=== PATIENT | female | born 2000 | race Caucasian/White ===

== ENCOUNTER 2025-01-19 10:51 | Outpatient (AMB) | payer MEDICAID, SELFPAY ==
--- NOTE | 2025-01-19 11:03 | A.OFFVIS_ITS ---
Vital Signs 01/19/25 11:05 Height 5 ft 3 in Weight 267 lb 3.204 oz BMI 47.3 BP 110/70 Pulse 72 Pulse Source Pulse Oximeter Pulse Oximetry (%) 98 Oxygen Delivery Method Room Air Intake Visit Reasons: Skin lesion? sarcoidosis Intake Note: pt presents today for possible skin lesions and srcoidosis. Allergies No Known Allergies Allergy (Verified 01/19/25 11:08) HPI HPI Skin lesion? sarcoidosis: Details: She had lesions on legs 01/07 that lasted a few days. She used a topical steroid prescribed by ER provider from her visit in 08/2024. On 08/21/2024 she developed new onset erythmatous lesions on leg. A photo shows drainage/blisters from one of the lesion with pain. +Pruritis. She also developed vaginal lesions. She had RADIOLOGY ASSISTANT exam with negative swabs for infection. She was prescribed topical anesthesia to help relief vaginal lesions. These lesions have resolved with topical steroid. She has not had dermatology eval or skin biopsy. Denies uveitis or ocular eye condition. Denies pain in eyes or redness. She has noticed that she needs in hence prescription. She had a tongue ulcer, self resolved. Fingers have turn purple in hot shower. Color in fingers/hand is more purple in hot shower but can turn purple with cold weather. Denies fevers, dyspnea, pleurisy, urinary symptoms. She has had chronic pain in hips, knees and backs. Shoulder pain since loosing weight from Bariatric surgery. No joint swelling. She was referred to PT for lower extremity strengthening last September but has not started it. Her highest weight was 577lb 2018. Prior to bariatric surgery she was 410lb. Pmx: asthma, depression, anxiety, OCD, ADHD, bipolar disorder and personality disorder. Psx: umbilical hernia repair 12/2023. Bariatric surgery 03/17/2024. Appendectomy 2021. Tonsilectomy and adenoidectomy age 22 years old. Vanessa occational. Rarely alcohol. 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 Mother has cutaneous sarcodosis. [facility] Medical History (Updated 01/19/25 @ 12:32 by Koffi Felipe MD) Abscess, appendix Surgical History (Updated 01/19/25 @ 11:14 by Katharine Benitez DISTILLING DEPARTMENT SUPERVISOR) S/P biliopancreatic diversion with duodenal switch H/O hernia repair Family History (Updated 01/19/25 @ 11:13 by Katharine Benitez CMA) Mother Sarcoidosis Social History (Updated 01/19/25 @ 11:16 by Katharine Benitez CMA) Household Members: None Alcohol intake: current Alcohol intake frequency: other Tobacco use type: Cigarette Review of Systems Const All systems reviewed & are unremarkable except as noted in HPI and below Physical Exam Vital Signs: Last Vital Signs Pulse 72 01/19/25 11:05 BP 110/70 01/19/25 11:05 Pulse Ox 98 01/19/25 11:05 Oxygen Delivery Method Room Air 01/19/25 11:05 BMI result Body Mass Index 47.3 Const Other: General: Comfortable CVS: RRR Respiratory: clear to auscultation bilaterally. Good respiratory effort Skin: Hyperpigmented circular skin lesions on legs, no discoloration of fingertips, no digital ulcers. MSK: She has tenderness of left MTPs. No synovitis of any joints. Normal range of motion of upper extremity. Mild Valgus deformity bilateral knees. She has knee flexion of 100 degrees bilateral knees. Tenderness to palpate bilateral groin region. No trochanteric bursa tenderness was found. Normal range of motion of hip flexors. Assessment & Plan Assessment & Plan (1) Rash: Comment: Patient has had lesions in lower extremities and vaginal area with 1 of the photos revealing a lesion with drainage/blistering. Patient is concerned for cutaneous sarcoidosis due to her mother having history of cutaneous sarcoidosis managed previously by a vineyard tender. She has not had any skin biopsy of her lesion. Differential diagnosis also includes bullous pemphigus due to blistering appearance of 1 of the skin lesions but requires histopathological analysis to confirm diagnosis including confirming cutaneous sarcoidosis. At this time she does not have any other manifestations to consider inflammatory arthritis associated with sarcoidosis or systemic sarcoidosis. Code(s): R21 - Rash and other nonspecific skin eruption Category: Medical Plan: Dermatology evaluation for her skin lesions. I recommend contacting PCP for referral (2) Bilateral knee pain: Code(s): M25.561 - Pain in right knee; M25.562 - Pain in left knee Category: Medical Qualifiers: Chronicity: chronic Qualified Code(s): M25.561 - Pain in right knee; M25.562 - Pain in left knee; G89.29 - Other chronic pain Plan: X-rays ordered Encouraged physical therapy for lower extremity strengthening. PT ordered given to patient to have done locally. (3) Hip pain, bilateral: Code(s): M25.551 - Pain in right hip; M25.552 - Pain in left hip Category: Medical Plan: X-rays of bilateral hips ordered PT ordered for lower extremity strengthening. PT ordered given to patient to have done locally. Return to clinic in 4 months (4) Morbid obesity: Comment: Status post bariatric surgery Code(s): E66.01 - Morbid (severe) obesity due to excess calories Category: Medical Plan: We discussed importance of maintenance of weight loss (5) Bilateral shoulder pain: Comment: With normal range of motion is concerning for mild rotator cuff tendinopathy. We discussed conservative management. Code(s): M25.511 - Pain in right shoulder; M25.512 - Pain in left shoulder Category: Medical Plan: X-ray bilateral shoulders ordered PT order for upper extremity strengthening. PT order given to patient to have done locally Return to clinic in 4 months Orders: Orders XR shoulder RT min 2V Today M25.511 - Pain in right shoulder, M25.512 - Pain in left shoulder PT Evaluation and Treatment Today M25.511 - Pain in right shoulder, M25.512 - Pain in left shoulder, M25.551 - Pain in right hip, M25.552 - Pain in left hip, M25.561 - Pain in right knee, M25.562 - Pain in left knee XR hips ALYSSA min 3V Today M25.551 - Pain in right hip, M25.552 - Pain in left hip XR knee RT 2V Today M17.0 - Bilateral primary osteoarthritis of knee XR knee LT 2V Today M25.561 - Pain in right knee, M25.562 - Pain in left knee XR shoulder LT min 2V Today M25.511 - Pain in right shoulder, M25.512 - Pain in left shoulder Coding Level of Care Code New Pt Level 4 (36567) Diagnoses Rash R21 Chronic pain of both knees M25.561; M25.562; G89.29 Chronicity: chronic Hip pain, bilateral M25.551; M25.552 Morbid obesity E66.01 Bilateral shoulder pain M25.511; M25.512
[2025-01-19 11:05] VITALS: BP 110/70; PULSE 72; O2SAT 98; BMI 47.3
--- OUTSIDE RECORDS SUMMARY | 2025-01-19 13:02 | XMS_ITS | Encounter Summary ---
Author Organization [facility] Address [address] [place] [address] Care Team Providers Care Simulation Specialist Name Role Phone Barrington Peres NP Primary Care Provider [phone]- [phone] Encounter Details Date Type Department Care Team (Late st Contact Info) Description 12/22/2024 Telephone Bariatric Surgery - [place] [address] [facility] [address] [place] [address] Jose Sanford MD [address] [place] [address] Social History Tobacco Use Types Packs/Day Years Used Date Smoking Tobacco: Former Smokeless Tobacco: Current Alcohol Use Standard Drinks/Week Comments Never 0 (1 standard drink = 0.6 oz pur e alcohol) Comments No Sex and Gender Information Value Date Recorded Sex Assigned at Female 12/10/2024 1:03 PM EST Legal Sex X 09/16/2024 9:15 PM EST Gender Identity Other 12/10/2024 1:03 PM EST Sexual Orientation Choose not to disclose 2024 1:03 PM EST documented as of this encounter Progress Notes * Jose Sanford MD - 12/22/2024 5:19 PM EST Turned out that she had influenza A. * Tanvi Pearson MA - 12/22/2024 2:24 PM EST Pt would like a call from either Juvenal or Jossie. Wouldn't state what the reason is. documented in this encounter Plan of Treatment Upcoming Encounters Date Type Department Care Team (Late st Contact Info) Description 03/16/2025 2:30 PM EDT Telemedicine Bariatric Surgery [facility] [address] [phone] Komal Rivera, ALEX [address] [address] 04/26/2025 2:15 PM EDT Office Visit Bariatric Surgery [facility] [address] [phone] Esperanza Hicks PA [address] [address] documented as of this encounter Visit Diagnoses Not on filedocumented in this encounter Additional Health Concerns Infection Onset Date Last Indicated Resolved Time Influenza 12/17/2024 12/17/2024 01/10/2025 7:06 PM EDT documented as of this encounter Care Teams Simulation Specialist Relationship Specialty Start Date End Date Barrington Peres NP [address] [place] [address] PCP - General Family Medicine 11/24/24 documented as of this encounter
--- OUTSIDE RECORDS SUMMARY | 2025-01-19 13:02 | XMS_ITS | Encounter Summary ---
Author Organization [facility] Address [address] [place] [address] Care Team Providers Care Gravel Weigher Name Role Phone Barrington Peres NP Primary Care Provider [phone]- [phone] Reason for Visit * Reason Comments Post-op Visit Hernia repair 12/15 Encounter Details Date Type Department Care Team ([facility] st Contact Info) Description 12/29/2024 2:45 PM EST Office Visit Bariatric Surgery - [place] [address] [facility] [address] [place] [address] Esperanza Hicks PA [address] [facility] [address] [place] [address] S/P umbilical hernia repair, follow-up exam (Primary Dx) Social History Tobacco Use Types Packs/Day Years [...] PM EST documented as of this encounter Last Filed Vital Signs Vital Sign Reading Time Taken Comments Blood Pressure 107/72 12/29/2024 2:47 PM EST Pulse 92 12/29/2024 2:47 PM EST Temperature - - Respiratory Rate - - Oxygen Saturation - - Inhaled Oxygen Concentration - - Weight 127 kg (279 lb) 12/29/2024 2:47 PM EST Height 160 cm (5' 3 ) 12/29/2024 2:47 PM EST Body Mass Index 49.42 12/29/2024 2:47 PM EST documented in this encounter Progress Notes * ROSALINE Wade - 12/29/2024 2:45 PM EST 12/30/2024 HPI: Jackie Nicole presents for surgical follow up s/p scopic repair of umbilical hernia with Dr. Sanford at [facility] on 06/14/2024. Unfortunately developed shortness of breath and was seen in the ER on 12/17/2023 at which time they was diagnosed with influenza A Treated with Tamiflu At that time she was also having abdominal pain and CT of her abdomen and pelvis was acquired, results below States that they still has a residual cough but feels overall better than they did at the time of their presentation to the ER Still having abdominal pain mainly with movement Feels a lump in there bellybutton that is bothering them They are eating and drinking Denies fever, chills, chest pain, shortness of breath COMPARISON: None. TECHNIQUE: CT angiogram of the chest after IV contrast followed by CT of the abdomen and pelvis. Radiation and contrast dose summarized and documented in a retrievable image series. One or more of the following dose reduction techniques were used: Automated exposure control, adjustment of the mA and/or kV according to patient size, iterative reconstruction. Contrast: 100 mL IOPAMIDOL 370 MG IODINE/ML (76 %) INTRAVENOUS SOLUTION Route: intravenous OBSERVATIONS: CHEST CT ANGIOGRAM: * DIAGNOSTIC QUALITY: Adequate. * PULMONARY EMBOLISM: None. * LUNGS and PLEURA: Normal. * CENTRAL AIRWAYS: Patent. * HEART/PERICARDIUM: Normal heart size. No pericardial effusion. No right ventricular strain. * AORTA/VESSELS: Patent. No aortic aneurysm or dissection. * MEDIASTINUM and DILMA: No enlarged lymph node or mass. * CHEST WALL: No acute or suspicious lesion. * THORACIC SKELETON: No acute or suspicious lesion. ABDOMEN AND PELVIS CT: * LIVER: Normal. * BILIARY TREE: Normal. * GALLBLADDER: Normal. * PANCREAS: Normal. * SPLEEN: Two (2) circumscribed hypodensities posteriorly suggesting cysts measuring up to 12 mm. * ADRENAL GLANDS: Normal. * KIDNEYS/URETERS/BLADDER: Normal. * REPRODUCTIVE ORGANS: Normal. * BOWEL: Sleeve gastrectomy changes. * LYMPH NODES: Normal. * PERITONEUM/MESENTERY: Tiny volume pneumoperitoneum compatible with recent surgery. No ascites. Nointra-abdominal abscess. * RETROPERITONEUM: No hematoma. * BLOOD VESSELS: Normal. * ABDOMINOPELVIC WALL: Mildly lobulated periumbilical fluid collection with air measuring 4.4 x 3.1cm on axial image 86 of series 5, and contiguous adjacent fluid collection LEFT of midline slightlymore inferiorly measuring 4.4 x 2.6 cm, which may be seroma or abscesses. Small volume foci of gas in the ventral abdominal wall compatible with recent surgery. * SKELETON: No acute or suspicious lesion. IMPRESSION: 1. No pulmonary embolism or finding to suggest acute chest disease. 2. Recent postoperative changes in the ventral abdominal wall with mildly lobulated small periumbilical fluid collection, which may be seroma or abscess. 3. No intra-abdominal abscess or pathologic fluid collection. Tiny volume pneumoperitoneum compatible with recent surgery noted. -------- FINAL REPORT -------- Dictated By: Tucker Woodward Dictated Date: 12/17/2024 19:33 Assigned Physician: Tucker Woodward Reviewed and Electronically Signed By: Tucker Woodward Signed Date: 12/17/2024 19:48 Workstation ID: [id number] Transcribed By: Self Edit Transcribed Date: 12/17/2024 19:33 Body mass index is 49.42 kg/m??. Pathology: HERNIA SAC WITH FOCAL FOREIGN BODY GRANULOMA ROS: GENERAL: No malaise, significant weight loss or fever HEENT: No changes in hearing or vision, nose bleeds or other nasal problems NECK: No lumps, goiter, pain or significant neck swelling RESPIRATORY: No cough, wheezing or shortness of breath CARDIOVASCULAR: No chest pain, leg swelling or palpitations GI: No abdominal discomfort, blood in stools or black stools MUSCULOSKELETAL: No joint pain or swelling, back pain, or muscle pain. SKIN: No lesions, rash or itching The remainder of the review of systems is noncontributory PAST MEDICAL HISTORY: Patient Active Problem List Diagnosis Head injury, initial encounter Abrasion of face ADD (attention deficit disorder) Bipolar 1 disorder (CMS/HCC) Hernia, umbilical OCD (obsessive compulsive disorder) Class 3 severe obesity with body mass index (BMI) of 50.0 to 59.9 in adult (CMS/[facility]) PAST SURGICAL HISTORY: Past Surgical History: Procedure Laterality Date APPENDECTOMY BARIATRIC SURGERY SOCIAL HISTORY: Social History Tobacco Use Smoking status: Former Smokeless tobacco: Current Substance Use Topics Alcohol use: Never FAMILY HISTORY: No family history on file. No family status information on file. MEDICATIONS: There are no discontinued medications. ACTIVE MEDICATIONS: Medication list was reviewed/updated with the patient. No outpatient medications have been marked as taking for the 12/29/24 encounter (Office Visit) with ROSALINE Wade. ALLERGIES: Allergies Allergen Reactions Prunes Anaphylaxis Nsaids (Non-Steroidal Anti-Inflammatory Drug) [place] Unknown PE: Vitals: 12/29/24 1447 BP: 107/72 Pulse: 92 Weight: 127 kg (279 lb) Height: 1.6 m (63 ) APPEARANCE: Alert and in no acute distress EYES: Conjunctiva and sclera normal. HEART: RRR with normal S1 and S2, no murmurs LUNG: Nonlabored respirations ABDOMEN: The incisions are healing well. Mild ecchymosis in the right periumbilical region There are no signs of infection, significant erythema, active drainage, or dehiscence at the surgical site. Does appear to be small fluid collection just to the left inferior aspect of the umbilicus. No overlying skin changes. Mildly tender. Soft, non-distended NEURO: Awake, alert and oriented EXTREMITIES: Extremities warm and well perfused without clubbing, cyanosis, or edema. A/P: 1. S/P umbilical hernia repair, follow-up exam Likely with postop seroma No signs of complication The patient is doing very well following surgery with good healing of surgical site. Hamida is advised regarding care of the incision site and is instructed to call if any wound drainage, fever, or other concerns arise. The patient will follow up in 4 weeks and Hamida is to call if there are any problems prior to scheduled visit. ROSALINE Wade documented in this encounter Plan of Treatment Upcoming Encounters Date Type Department Care Team (Late st Contact Info) Description 03/16/2025 2:30 PM EDT Telemedicine Bariatric Surgery - [address] [phone] Komal Rivera, RD [address] [address] 04/26/2025 2:15 PM EDT Office Visit Bariatric Surgery - [place] [address] [phone] Esperanza Hicks PA [address] [address] documented as of this encounter Visit Diagnoses Diagnosis S/P umbilical hernia repair, follow-up exam- Primary documented in this encounter Additional Health Concerns Infection Onset Date Last Indicated Resolved Time Influenza 12/17/2024 12/17/2024 01/10/2025 7:06 PM EDT documented as of this encounter Care Teams Gravel Weigher Relationship Specialty Start Date End Date Barrington Peres NP [address] [place] [address] PCP - General Family Medicine 11/24/24 documented as of this encounter
--- OUTSIDE RECORDS SUMMARY | 2025-01-19 13:02 | XMS_ITS ---
Author Organization [facility] Address [address] [place] [id number] Care Team Providers Care Quality Rn Name Role Phone Barrington Peres Primary Care Provider Gilda Samaniego Unavailable [phone] REASON FOR VISIT BH: Strattera Encounters Encounter Location Date Provider Diagnosis [address] [phone] 12/30/2024 Gilda Samaniego Plan Of Treatment Next Appt Details Provider Name:Gilda Samaniego, 03/10/2025 11:30:00 AM, [address] [facility], [place], [place], [phone], Progress Notes * Jackie GROSS SDOB: 0 (24 yo F)Acc No.[id number]:12/30/2024 Progress Notes Patient:?Jackie GROSS Ariana Provider:?Gilda Samaniego PMHNP-BC :2000???Age:24 Y???Sex:Female D ate:12/30/2024 Address:[address] [place] [address] [address], [facility] Pcp:Barrington Peres Subjective: * Chief Complaints: * ???1. BH: Strattera. * Medical History:? Objective: * Vitals:? Assessment: Plan: * Treatment: * Images: Billing Information: * Visit Code:? * Procedure Codes:? Care Plan Details* * Electronic signature of KERRI Ruvalcaba on 01/19/2025 at 01:02 PM EDT Sign off status: Pending * Provider:?Gilda Samaniego PMHNP-BC Date:?0 12/30/2024 Generated for Everardo gillette/Pedro/Adama on:?01/19/2025 01:02 PM EDT
--- OUTSIDE RECORDS SUMMARY | 2025-01-19 13:02 | XMS_ITS | Clinical Summary ---
Author Organization [facility] Address [address] [place] [address] Phone Care Team Providers Care Staff Development Coordinator Name Role Phone Barrington Peres PARKS RECREATION DIRECTOR Primary Care Provider [phone] Allergies Active Allergy Reactions Criticality Noted Date Comments Nsaids (Non-Steroidal Anti-I nflammatory Drug) 12/17/2024 [place] Unknown 02/08/2022 Prunes Anaphylaxis High 07/24/2016 Medications ALBUTEROL INHL Inhale into the lungs. Active buPROPion XL (WELLBUTRIN XL) 150 mg 24 hr tabletIndication s:Morbid (severe) obesity due to excess calories (CMS/HCC) TAKE 1 TABLET BY MOUTH EVERY MORNING 30 tablet 3 4 Active Additional Information Patient taking differently: 300 mgoral Every morning, Reported on 12/15/2024 naltrexone (DEPADE) 50 mg tabletIndication s:Morbid (severe) obesity due to excess calories (CMS/HCC) TAKE 1 TABLET BY MOUTH ONCE DAILY 30 tablet 3 4 Active betamethasone dipropionate (DIPROSONE) 0.05 % ointment Apply topically 2 (two) times a day. 30 g 4 025 Active loratadine (CLARITIN) 10 mg tablet Take 1 tablet (10 mg total) by mouth 1 (one) time each day for 7 days. 7 tablet 4 Active pantoprazole (PROTONIX) 40 mg EC tablet TAKE 1 TABLET BY MOUTH ONCE DAILY 90 tablet 5 Active oxyCODONE (OXY-IR) 5 mg immediate release capsule Take 1 capsule (5 mg total) by mouth every 6 (six) hours if needed for severe pain for up to 12 doses. Max Daily Amount: 20 mg 12 capsule 5 Active scopolamine (TRANSDERM-SCOP) 1 mg over 3 days patch 3 day Apply 1 patch topically every 3rd (third) day for 9 days. 3 patch 5 025 Active acetaminophen (TYLENOL) 500 mg tablet Take 2 tablets (1,000 mg total) by mouth every 8 (eight) hours if needed for mild pain for up to 10 days. 30 tablet 5 025 benzonatate (TESSALON) 100 mg capsule Take 1 capsule (100 mg total) by mouth every 8 (eight) hours for 7 days. Do not crush or chew. 21 capsule 5 025 oseltamivir (TAMIFLU) 75 mg capsule Take 1 capsule (75 mg total) by mouth every 12 (twelve) hours for 5 days. 10 capsule 5 025 Active Problems Problem Noted Date Diagnosed Date Bariatric surgery status 01/17/2025 Dehydration 01/17/2025 Class 3 severe obesity with body mass index (BMI) of 50.0 to 59.9 in adult 09/01/2024 ADD (attention deficit disorder) 01/06/2023 Bipolar 1 disorder 01/06/2023 Hernia, umbilical 01/06/2023 OCD (obsessive compulsive disorder) 01/06/2023 Head injury, initial encounter 02/08/2022 Abrasion of face 02/08/2022 Encounters Date Type Department Care Team Description 01/17/2025 1:45 PM EDT Office Visit Bariatric Surgery [address] [phone] Esperanza Hicks PA Umbilical hernia without obstruction and without gangrene (Primary Dx); H/O umbilical hernia repair; Bariatric surgery status; Dehydration 12/29/2024 2:45 PM EST Office Visit Bariatric Surgery [address] [phone] Esperanza Hicks PA S/P umbilical hernia repair, follow-up exam (Primary Dx) 12/22/2024 Telephone Bariatric Surgery - [place] [address] [phone] Jose Sanford MD 12/17/2024 3:46 PM EST - 12/17/2024 8:43 PM EST Emergency [facility] Emergency [address] [place] [address] Shortness of breath (Primary Dx); Influenza A; Abdominal pain, unspecified abdominal location Discharge Disposition: Home or Self Care 12/17/2024 Telephone Bariatric Surgery - [place] [address] [phone] Jose Sanford MD Advice Only (Post Op ) 12/15/2024 12:30 PM EST - 12/15/2024 2:30 PM EST Surgery [facility] Main OR [address] [place] [address] Jose Sanford MD LAPAROSCOPIC REPAIR UMBILICAL HERNIA WITH MESH [[id number] (CPT??)] 12/15/2024 12:04 PM EST Anesthesia Event [facility] Main OR [address] [place] [address] José Manuel Carrero MD Elliott, Barbara J [facility] 12/15/2024 10:48 AM EST - 12/15/2024 4:02 PM EST Hospital Encounter [facility] Main OR [address] [place] [address] Jose Sanford MD Umbilical hernia with obstruction, without gangrene; Morbid (severe) obesity due to excess calories (CMS/[facility]) Discharge Disposition: Home or Self Care 12/10/2024 1:32 PM EST - 12/10/2024 11:59 PM EST Hospital Encounter [facility] Xray [address] [place] [address] Fred Cordon MD Discharge Disposition: Home or Self Care 12/02/2024 Telephone Bariatric Surgery - [place] [address] [phone] Esperanza Hicks PA Advice Only (Phone call) 12/01/2024 3:15 PM EST Office Visit Bariatric Surgery - [place] [address] [place] [address] Jose Sanford MD Umbilical hernia without obstruction and without gangrene (Primary Dx); Class 3 severe obesity due to excess calories with body mass index (BMI) of 45.0 to 49.9 in adult, unspecified whether serious comorbidity present ([facility]); Postoperative intestinal malabsorption 11/24/2024 11:11 AM EST - 11/24/2024 1:38 PM EST Emergency [facility] Emergency [address] [place] [address] Rick Dubon DO Nausea and vomiting, unspecified vomiting type (Primary Dx); Generalized abdominal pain; Hernia of abdominal wall Discharge Disposition: Home or Self Care 11/12/2024 Lab Requisition [facility] - Main Lab [address] [facility] [place] [address] Neptali Madera MD Acute vaginitis from Last 3 Months Surgical History Surgery Date Site/Laterality Comments APPENDECTOMY BARIATRIC SURGERY Medical History Medical History Date Comments Asthma Bipolar disorder ([facility]) Borderline personality disorder ([facility]) Anxiety Depression PTSD (post-traumatic stress disorder) Obesity (BMI 30.0-34.9) 01/06/2023 DX:Obesi ty (BMI 30.0-34.9) Social History Tobacco Use Types Packs/Day Years Used Date Smoking Tobacco: Former Smokeless Tobacco: Current Tobacco Cessation:Ready to Q uit: Not Asked; Counseling Given: Not Answered Alcohol Use Standard Drinks/Week Comments Never 0 (1 standard drink = 0.6 oz pur e alcohol) Comments No Sex and Gender Information Value Date Recorded Sex Assigned at Female 12/10/2024 1:03 PM EST Legal Sex X 09/16/2024 9:15 PM EST Gender Identity Other 12/10/2024 1:03 PM EST Sexual Orientation Choose not to disclose 2024 1:03 PM EST Obstetrics History Last Filed Vital Signs Vital Sign Reading Time Taken Comments Blood Pressure 118/78 01/17/2025 1:46 PM EDT Pulse 55 01/17/2025 1:46 PM EDT Temperature 37.4 ??C (99.4 ??F) 12/17/2024 3:43 PM ES T Respiratory Rate 18 12/17/2024 8:36 PM EST Oxygen Saturation 96% 12/17/2024 8:36 PM EST Inhaled Oxygen Concentration - - Weight 123 kg (270 lb 9.6 oz) 01/17/2025 1:46 PM EDT Height 160 cm (5' 3 ) 01/17/2025 1:46 PM EDT Body Mass Index 47.93 01/17/2025 1:46 PM EDT Plan of Treatment Upcoming Encounters Date Type Department Care Team (Late st Contact Info) Description 03/16/2025 2:30 PM EDT Telemedicine Bariatric Surgery [facility] [address] [phone] Komal Rivera, ALEX [address] [phone] 04/26/2025 2:15 PM EDT Office Visit Bariatric Surgery [facility] [address] [phone] Esperanza Hicks PA [address] [phone] Health Maintenance Due Date Last Done Comments Pneumococcal Vaccine: Pediatrics (0 to 5 Years) and At-Risk Patients (6 to 64 Years) (1 of 1 - PPSV23) 2006 09/28/2001, 07/03/2001, 03/17/2001 Meningococcal B Vacine (2 of 2 - Bexsero SCDM 2-dose series) 06/24/2019 12/25/2018 Depression Screening 12/12/2019 Social Influencers of Health Screening 12/12/2019 Cervical Cancer Screening: Pap Smear 2021 COVID-19 Vaccine ( season) 2024 08/05/2022, 04/24/2021, 04/03/2021 Influenza Vaccine (#1) 2024 3, 07/30/2016, 08/28/2015, Additional history exists Gonorrhea/Chlamydia Screening 11/12/2025 11/12/2024 Cholesterol Screening (Lipid Panel) 05/08/2028 05/08/2023 DTaP,Tdap,and Td Vaccines (9 - Td or Tdap) 02/16/2034 02/17/2024, 06/11/2016, 10/05/2011, Additional history exists HIB Vaccines Completed 01/20/2002, 01/02, 2000 IPV Vaccines Completed 07/24/2004, 01/02, 01/26/2001, Additional history exists MMR Vaccines Completed 06/19/2005, 01/20/2002 Varicella Vaccines Completed 05/21/2011, 10/19/2001 HPV Vaccines Completed 08/11/2013, 04/03, 02/09/2013 Meningococcal ACWY Vaccine Completed 03/01/2017, Hepatitis A Vaccines Completed 12/25/2018, 06/11/20 Hepatitis B Vaccines Completed 06/01/2024, 12/29/2023, 11/26/2023, Additional history exists HIV Screening Completed 11/12/2024 Hepatitis C Screening Completed 11/12/2024 RSV Immunization Patients Under 20 months Aged Out No longer eligible based on patient's age to complete this topic Medical Devices Implanted Type Area Business Continuity Director Device Identifier Shelf Expiration Date Model / Serial / Lot Mesh [place] 37cm Optiflex Absrb Filt System - Sna - [id number] Implanted:Qty: 2 on 12/15/2024 by Joes Sanford MD at [facility] Internal and External Fixation N/A: Umbilical CR BARD - DAVOL DIV 04/30/2026 [id number] / NA / [id number] Mesh Surg [address] [place] [employer] Lf - Sna - [id number] Implanted:Qty: 1 on 12/15/2024 by Jose Sanford MD at [facility] Surgical Mesh Sling Implants N/A: Umbilical CR BARD - DAVOL DIV 04/30/2026 [id number] / NA / [id number] Procedures Procedure Name Priority Date/Time Associated Diagnosis Comments CT ANGIO CHEST WO AND/OR W CONTRAST STAT 12/17/2024 7:30 PM EST Shortness of breath CT ABDOMEN PELVIS W CONTRAST STAT 12/17/2024 7:30 PM EST CBC WITH AUTO DIFFERENTIAL STAT 12/17/2024 4:49 PM EST HCG, SERUM, QUALITATIVE STAT 12/17/19 25 4:49 PM EST D-DIMER STAT 12/17/2024 4:49 PM EST TROPONIN I HIGH SENSITIVITY STAT 12/17/2024 4:49 PM EST COMPREHENSIVE METABOLIC PANEL STAT 12/17/2024 4:49 PM EST CBC AND DIFFERENTIAL STAT 12/17/2024 4:49 PM EST XR CHEST 2 VIEWS STAT 12/17/2024 4:39 PM EST POCT [id number] SCREENING, MOLECULAR Routine 12/17/2024 4:31 PM EST POCT INFLUENZA TYPE A AND B Routine 12/17/2024 4:30 PM EST ECG 12-LEAD STAT 12/17/2024 3:39 PM EST TISSUE EXAM Routine 12/15/2024 1:15 PM EST Umbilical hernia with obstruction, without gangrene TH AN ENDOTRACHEAL(NO CHARGE) Routine 12/15/2024 1:01 PM EST NC REPR ANT ABD HERNIA(S) ANY APPR INIT INCL IMPL < 3 CM REDUCIBLE 12/15/2024 12:04 PM EST Umbilical hernia with obstruction, without gangrene XR CHEST 2 VIEWS Routine 12/10/2024 1:44 PM EST Umbilical hernia without obstruction and without gangrene CBC WITH AUTO DIFFERENTIAL Routine 12/10/2024 1:10 PM EST Umbilical hernia without obstruction and without gangrene BASIC METABOLIC PANEL Routine 12/10/2024 1:10 PM EST Umbilical hernia without obstruction and without gangrene CBC AND DIFFERENTIAL Routine 12/10/2024 1:10 PM EST Umbilical hernia without obstruction and without gangrene MAGNESIUM Routine 12/10/2024 1:10 PM EST Umbilical hernia without obstruction and without gangrene PROTHROMBIN TIME WITH INR Routine 12/10/2024 1:10 PM EST Umbilical hernia without obstruction and without gangrene TYPE AND SCREEN Routine 12/10/2024 1:10 PM EST Umbilical hernia without obstruction and without gangrene HICKEY URINE CULTURE TUBE Routine 12/10/19 25 1:10 PM EST Umbilical hernia without obstruction and without gangrene URINALYSIS WITH REFLEX MICROSCOPIC AND CULTURE Routine 12/10/2024 1:10 PM EST Umbilical hernia without obstruction and without gangrene URINALYSIS WITH REFLEX MICROSCOPIC AND CULTURE Routine 12/10/2024 1:10 PM EST Umbilical hernia without obstruction and without gangrene CULTURE URINE Routine 12/10/2024 1:10 PM EST Umbilical hernia without obstruction and without gangrene ECG 12-LEAD Routine 12/10/2024 12:54 PM EST Umbilical hernia without obstruction and without gangrene CT ABDOMEN PELVIS W CONTRAST STAT 11/24/2024 12:06 PM EST POC , URINE DIAGNOSTIC STAT 11/24/2024 9:46 AM EST CBC WITH AUTO DIFFERENTIAL STAT 11/24/2024 9:44 AM EST LIPASE STAT 11/24/2024 9:44 AM EST COMPREHENSIVE METABOLIC PANEL STAT 11/24/2024 9:44 AM EST CBC AND DIFFERENTIAL STAT 11/24/2024 9:44 AM EST SST - GOLD Routine 11/12/2024 9:40 AM EST Acute vaginitis HEPATITIS C ANTIBODY Routine 11/12/2024 9:40 AM EST Acute vaginitis TREPONEMA PALLIDUM ANTIBODY WITH REFLEX TO RPR AND PARTICLE AGGLUTINATION Routine 11/12/2024 9:40 AM EST Acute vaginitis HIV 1, 2 ANTIBODY, P24 ANTIGEN WITH REFLEX TO DIFFERENTIATION Routine 11/12/2024 9:40 AM EST Acute vaginitis CHLAMYDIA TRACHOMATIS AND NEISSERIA GONORRHOEAE PCR Routine 11/12/2024 9:40 AM EST Acute vaginitis VAGINITIS PATHOGENS BY PCR Routine 11/12/2024 9:40 AM EST Acute vaginitis LIPID PANEL Routine 05/08/2023 from Last 3 Months or Most Recently Relevant to Health Maintenance Results * CT Abdomen Pelvis w Contrast (12/17/2024 7:30 PM EST) Only the most recent of2 resultswithin the time period is included. Anatomical Region Laterality Modality Body Computed Tomogra phy 12/17/2024 7:33 PM EST Impressions 12/17/2024 7:48 PM EST 1. ??No pulmonary embolism or finding to suggest acute chest disease. 2. ??Recent postoperative changes in the ventral abdominal wall with mildly lobulated small periumbilical fluid collection, which may be seroma or abscess. 3. ??No intra-abdominal abscess or pathologic fluid collection. Tiny volume pneumoperitoneum compatible with recent surgery noted. -------- FINAL REPORT -------- Dictated By: Tucker Woodward Dictated Date: 12/17/2024 19:33 Assigned Physician: Tucker Woodward Reviewed and Electronically Signed By: Tucker Woodward Signed Date: 12/17/2024 19:48 Workstation ID: [id number] Transcribed By: Self Edit Transcribed Date: 12/17/2024 19:33 Narrative 12/17/2024 7:48 PM EST COMPARISON: None. TECHNIQUE: ??CT angiogram of the chest after IV contrast followed by CT of the abdomen and pelvis. ??Radiation and contrast dose summarized and documented in a retrievable image series. One or more of the following dose reduction techniques were used: Automated exposure control, adjustment of the mA and/or kV according to patient size, iterative reconstruction. ?? Contrast: 100 mL IOPAMIDOL 370 MG IODINE/ML (76 %) INTRAVENOUS SOLUTION Route: intravenous OBSERVATIONS: CHEST CT ANGIOGRAM: * ??DIAGNOSTIC QUALITY: Adequate. * ??PULMONARY EMBOLISM: None. * ??LUNGS and PLEURA: Normal. * ??CENTRAL AIRWAYS: Patent. * ??HEART/PERICARDIUM: Normal heart size. ??No pericardial effusion. No right ventricular strain. * ??AORTA/VESSELS: Patent. No aortic aneurysm or dissection. * ??MEDIASTINUM and DILMA: No enlarged lymph node or mass. * ??CHEST WALL: No acute or suspicious lesion. * ??THORACIC SKELETON: No acute or suspicious lesion. ABDOMEN AND PELVIS CT: * ??LIVER: Normal. * ??BILIARY TREE: Normal. * ??GALLBLADDER: Normal. * ??PANCREAS: Normal. * ??SPLEEN: Two (2) circumscribed hypodensities posteriorly suggesting cysts measuring up to 12 mm. * ??ADRENAL GLANDS: Normal. * ??KIDNEYS/URETERS/BLADDER: Normal. * ??REPRODUCTIVE ORGANS: Normal. * ??BOWEL: Sleeve gastrectomy changes. * ??LYMPH NODES: Normal. * ??PERITONEUM/MESENTERY: Tiny volume pneumoperitoneum compatible with recent surgery. ??No ascites. No intra-abdominal abscess. * ??RETROPERITONEUM: No hematoma. * ??BLOOD VESSELS: Normal. * ??ABDOMINOPELVIC WALL: Mildly lobulated periumbilical fluid collection with air measuring 4.4 x 3.1 cm on axial image 86 of series 5, and contiguous adjacent fluid collection LEFT of midline slightly more inferiorly measuring 4.4 x 2.6 cm, which may be seroma or abscesses. Small volume foci of gas in the ventral abdominal wall compatible with recent surgery. * ??SKELETON: No acute or suspicious lesion. Procedure Note Tucker Woodward MD - 12/17/2024 COMPARISON: None. TECHNIQUE: CT angiogram of the chest after IV contrast followed by CT ofthe abdomen and pelvis. Radiation and contrast dose summarized anddocumented in a retrievable image series. One or more of the followingdose reduction techniques were used: Automated exposure control,adjustment of the mA and/or kV according to patient size, iterativereconstruction. Contrast: 100 mL IOPAMIDOL 370 MG IODINE/ML (76 %) INTRAVENOUS SOLUTIONRoute: intravenous OBSERVATIONS: CHEST CT ANGIOGRAM: * DIAGNOSTIC QUALITY: Adequate. * PULMONARY EMBOLISM: None. * LUNGS and PLEURA: Normal. * CENTRAL AIRWAYS: Patent. * HEART/PERICARDIUM: Normal heart size. No pericardial effusion. Noright ventricular strain. * AORTA/VESSELS: Patent. No aortic aneurysm or dissection. * MEDIASTINUM and DILMA: No enlarged lymph node or mass. * CHEST WALL: No acute or suspicious lesion. * THORACIC SKELETON: No acute or suspicious lesion. ABDOMEN AND PELVIS CT: * LIVER: Normal. * BILIARY TREE: Normal. * GALLBLADDER: Normal. * PANCREAS: Normal. * SPLEEN: Two (2) circumscribed hypodensities posteriorly suggestingcysts measuring up to 12 mm. * ADRENAL GLANDS: Normal. * KIDNEYS/URETERS/BLADDER: Normal. * REPRODUCTIVE ORGANS: Normal. * BOWEL: Sleeve gastrectomy changes. * LYMPH NODES: Normal. * PERITONEUM/MESENTERY: Tiny volume pneumoperitoneum compatible withrecent surgery. No ascites. No intra-abdominal abscess. * RETROPERITONEUM: No hematoma. * BLOOD VESSELS: Normal. * ABDOMINOPELVIC WALL: Mildly lobulated periumbilical fluid collectionwith air measuring 4.4 x 3.1 cm on axial image 86 of series 5, andcontiguous adjacent fluid collection LEFT of midline slightly moreinferiorly measuring 4.4 x 2.6 cm, which may be seroma or abscesses. Smallvolume foci of gas in the ventral abdominal wall compatible with recentsurgery. * SKELETON: No acute or suspicious lesion. IMPRESSION: 1. No pulmonary embolism or finding to suggest acute chest disease. 2. Recent postoperative changes in the ventral abdominal wall with mildlylobulated small periumbilical fluid collection, which may be seroma orabscess. 3. No intra-abdominal abscess or pathologic fluid collection. Tiny volumepneumoperitoneum compatible with recent surgery noted. -------- FINAL REPORT -------- Dictated By: Tucker Woodward Dictated Date: 12/17/2024 19:33 Assigned Physician: Tucker Woodward Reviewed and Electronically Signed By: Tucker Woodward Signed Date: 12/17/2024 19:48 Workstation ID: [id number] Transcribed By: Self Edit Transcribed Date: 12/17/2024 19:33 us Alisa WAGGONER IMG CT PROCEDURES Final Resu lt * CT Angio Chest wo and/or w Contrast (12/17/2024 7:30 PM EST) Anatomical Region Laterality Modality Body Computed Tomogra phy 12/17/2024 7:33 PM EST Impressions 12/17/2024 7:48 PM EST 1. ??No pulmonary embolism or finding to suggest acute chest disease. 2. ??Recent postoperative changes in the ventral abdominal wall with mildly lobulated small periumbilical fluid collection, which may be seroma or abscess. 3. ??No intra-abdominal abscess or pathologic fluid collection. Tiny volume pneumoperitoneum compatible with recent surgery noted. -------- FINAL REPORT -------- Dictated By: Tucker Woodward Dictated Date: 12/17/2024 19:33 Assigned Physician: Tucker Woodward Reviewed and Electronically Signed By: Tucker Woodward Signed Date: 12/17/2024 19:48 Workstation ID: [id number] Transcribed By: Self Edit Transcribed Date: 12/17/2024 19:33 Narrative 12/17/2024 7:48 PM EST COMPARISON: None. TECHNIQUE: ??CT angiogram of the chest after IV contrast followed by CT of the abdomen and pelvis. ??Radiation and contrast dose summarized and documented in a retrievable image series. One or more of the following dose reduction techniques were used: Automated exposure control, adjustment of the mA and/or kV according to patient size, iterative reconstruction. ?? Contrast: 100 mL IOPAMIDOL 370 MG IODINE/ML (76 %) INTRAVENOUS SOLUTION Route: intravenous OBSERVATIONS: CHEST CT ANGIOGRAM: * ??DIAGNOSTIC QUALITY: Adequate. * ??PULMONARY EMBOLISM: None. * ??LUNGS and PLEURA: Normal. * ??CENTRAL AIRWAYS: Patent. * ??HEART/PERICARDIUM: Normal heart size. ??No pericardial effusion. No right ventricular strain. * ??AORTA/VESSELS: Patent. No aortic aneurysm or dissection. * ??MEDIASTINUM and DILMA: No enlarged lymph node or mass. * ??CHEST WALL: No acute or suspicious lesion. * ??THORACIC SKELETON: No acute or suspicious lesion. ABDOMEN AND PELVIS CT: * ??LIVER: Normal. * ??BILIARY TREE: Normal. * ??GALLBLADDER: Normal. * ??PANCREAS: Normal. * ??SPLEEN: Two (2) circumscribed hypodensities posteriorly suggesting cysts measuring up to 12 mm. * ??ADRENAL GLANDS: Normal. * ??KIDNEYS/URETERS/BLADDER: Normal. * ??REPRODUCTIVE ORGANS: Normal. * ??BOWEL: Sleeve gastrectomy changes. * ??LYMPH NODES: Normal. * ??PERITONEUM/MESENTERY: Tiny volume pneumoperitoneum compatible with recent surgery. ??No ascites. No intra-abdominal abscess. * ??RETROPERITONEUM: No hematoma. * ??BLOOD VESSELS: Normal. * ??ABDOMINOPELVIC WALL: Mildly lobulated periumbilical fluid collection with air measuring 4.4 x 3.1 cm on axial image 86 of series 5, and contiguous adjacent fluid collection LEFT of midline slightly more inferiorly measuring 4.4 x 2.6 cm, which may be seroma or abscesses. Small volume foci of gas in the ventral abdominal wall compatible with recent surgery. * ??SKELETON: No acute or suspicious lesion. Procedure Note Tucker Woodward MD - 12/17/2024 COMPARISON: None. TECHNIQUE: CT angiogram of the chest after IV contrast followed by CT ofthe abdomen and pelvis. Radiation and contrast dose summarized anddocumented in a retrievable image series. One or more of the followingdose reduction techniques were used: Automated exposure control,adjustment of the mA and/or kV according to patient size, iterativereconstruction. Contrast: 100 mL IOPAMIDOL 370 MG IODINE/ML (76 %) INTRAVENOUS SOLUTIONRoute: intravenous OBSERVATIONS: CHEST CT ANGIOGRAM: * DIAGNOSTIC QUALITY: Adequate. * PULMONARY EMBOLISM: None. * LUNGS and PLEURA: Normal. * CENTRAL AIRWAYS: Patent. * HEART/PERICARDIUM: Normal heart size. No pericardial effusion. Noright ventricular strain. * AORTA/VESSELS: Patent. No aortic aneurysm or dissection. * MEDIASTINUM and DILMA: No enlarged lymph node or mass. * CHEST WALL: No acute or suspicious lesion. * THORACIC SKELETON: No acute or suspicious lesion. ABDOMEN AND PELVIS CT: * LIVER: Normal. * BILIARY TREE: Normal. * GALLBLADDER: Normal. * PANCREAS: Normal. * SPLEEN: Two (2) circumscribed hypodensities posteriorly suggestingcysts measuring up to 12 mm. * ADRENAL GLANDS: Normal. * KIDNEYS/URETERS/BLADDER: Normal. * REPRODUCTIVE ORGANS: Normal. * BOWEL: Sleeve gastrectomy changes. * LYMPH NODES: Normal. * PERITONEUM/MESENTERY: Tiny volume pneumoperitoneum compatible withrecent surgery. No ascites. No intra-abdominal abscess. * RETROPERITONEUM: No hematoma. * BLOOD VESSELS: Normal. * ABDOMINOPELVIC WALL: Mildly lobulated periumbilical fluid collectionwith air measuring 4.4 x 3.1 cm on axial image 86 of series 5, andcontiguous adjacent fluid collection LEFT of midline slightly moreinferiorly measuring 4.4 x 2.6 cm, which may be seroma or abscesses. Smallvolume foci of gas in the ventral abdominal wall compatible with recentsurgery. * SKELETON: No acute or suspicious lesion. IMPRESSION: 1. No pulmonary embolism or finding to suggest acute chest disease. 2. Recent postoperative changes in the ventral abdominal wall with mildlylobulated small periumbilical fluid collection, which may be seroma orabscess. 3. No intra-abdominal abscess or pathologic fluid collection. Tiny volumepneumoperitoneum compatible with recent surgery noted. -------- FINAL REPORT -------- Dictated By: Tucker Woodward Dictated Date: 12/17/2024 19:33 Assigned Physician: Tucker Woodward Reviewed and Electronically Signed By: Tucker Woodward Signed Date: 12/17/2024 19:48 Workstation ID: [id number] Transcribed By: Self Edit Transcribed Date: 12/17/2024 19:33 us Alisa WAGGONER IMG CT PROCEDURES Final Resu lt * Troponin I high sensitivity (12/17/2024 4:49 PM EST) [facility] High Sensitivity Troponin I <4 0 - 76 ng/L LAB CHEMISTRY METHOD 12/17/2024 5:25 PM EST [facility] Blood Venous blood specimen / Unknown Venipuncture / Unknown 12/17/2024 4:49 PM EST 12/17/2024 4:57 PM EST Narrative [facility] - 12/17/2024 5:25 PM EST Falsely decreased High Sensitivity Troponin I results may occur on samples from patients taking Biotin. us Alisa WAGGONER LAB BLOOD ORDERABLES Final R esult [facility] [address] [place] [address] * (ABNORMAL) CBC auto differential (12/17/2024 4:49 PM EST) Only the most recent of3 resultswithin the time period is included. [facility] WBC 5.7 4.0 - 10.2 K/mcL LAB HEMETOLOGY METHOD 12/17/2024 5:03 PM [facility] RBC 4.87 3.80 - 5.70 M/mcL LAB HEMETOLOGY METHOD 12/17/2024 5:03 PM [facility] Hemoglobin 13.7 11.3 - 17.1 g/dL LAB HEMETOLOGY METHOD 12/17/2024 5:03 PM [facility] Hematocrit 41.3 34.0 - 50.2 % LAB HEMETOLOGY METHOD 12/17/2024 5:03 PM [facility] MCV 84.8 81.0 - 97.0 FL LAB HEMETOLOGY METHOD 12/17/2024 5:03 PM [facility] MCH 28.1 25.3 - 36.6 pcg LAB HEMETOLOGY METHOD 12/17/2024 5:03 PM [facility] MCHC 33.2 29.2 - 35.3 g/dL LAB HEMETOLOGY METHOD 12/17/2024 5:03 PM [facility] RDW 13.7 11.0 - 14.5 % LAB HEMETOLOGY METHOD 12/17/2024 5:03 PM [facility] RDW-SD 42.7 36.8 - 48.3 FL LAB HEMETOLOGY METHOD 12/17/2024 5:03 PM [facility] Platelets 192 150 - 400 K/mcL LAB HEMETOLOGY METHOD 12/17/2024 5:03 PM [facility] MPV 11.8 8.9 - 13.3 FL LAB HEMETOLOGY METHOD 12/17/2024 5:03 PM [facility] Neutrophils Relative 81.5(H) 32.0 - 71.0 % LAB HEMETOLOGY METHOD 12/17/2024 5:03 PM [facility] Immature Granulocytes Relative 0.2 0.0 - 1.0 % LAB HEMETOLOGY METHOD 12/17/2024 5:03 PM [facility] Lymphocytes Relative 7.7(L) 19.5 - 54.0 % LAB HEMETOLOGY METHOD 12/17/2024 5:03 PM [facility] Monocytes Relative 10.4 4.0 - 14.0 % LAB HEMETOLOGY METHOD 12/17/2024 5:03 PM [facility] Eosinophils Relative 0.0 0.0 - 7.0 % LAB HEMETOLOGY METHOD 12/17/2024 5:03 PM [facility] Basophils Relative 0.2 0.0 - 2.0 % LAB HEMETOLOGY METHOD 12/17/2024 5:03 PM [facility] Preliminary Neutrophils Abs Automated Count 4.65 1.50 - 6.00 K/mcL LAB HEMETOLOGY METHOD 12/17/2024 5:03 PM [facility] Neutrophils Absolute 4.65 1.50 - 6.00 K/mcL LAB HEMETOLOGY METHOD 12/17/2024 5:03 PM [facility] Immature Granulocytes Absolute 0.01 0.00 - 0.10 K/mcL LAB HEMETOLOGY METHOD 12/17/2024 5:03 PM [facility] Lymphocytes Absolute 0.44(L) 1.10 - 4.00 K/mcL LAB HEMETOLOGY METHOD 12/17/2024 5:03 PM [facility] Monocytes Absolute 0.59 0.20 - 1.00 K/mcL LAB HEMETOLOGY METHOD 12/17/2024 5:03 PM [facility] Eosinophils Absolute 0.00 0.00 - 0.70 K/mcL LAB HEMETOLOGY METHOD 12/17/2024 5:03 PM [facility] Basophils Absolute 0.01 0.00 - 0.20 K/mcL LAB HEMETOLOGY METHOD 12/17/2024 5:03 PM [facility] NRBC 0.0 0.0 - 0.0 % LAB HEMETOLOGY METHOD 12/17/2024 5:03 PM [facility] NRBC Absolute 0.00 0.00 - 0.00 K/mcL LAB HEMETOLOGY METHOD 12/17/2024 5:03 PM [facility] Blood Venous blood specimen / Unknown Venipuncture / Unknown 12/17/2024 4:49 PM EST 12/17/2024 4:57 PM EST Alisa WAGGONER LAB BLOOD ORDERABLES Final R esult Performing Organization Address City/[facility]/ZIP Co de Phone Number [facility] [address] [place] [address] * (ABNORMAL) D-dimer, quantitative (12/17/2024 4:49 PM EST) D-Dimer, Quant (FEU) 1,042(H) <=500 ng/mL FEU LAB COAGULATION METHOD 12/17/2024 5:29 PM EST [facility] Blood Venous blood specimen / Unknown Venipuncture / Unknown 12/17/2024 4:49 PM EST 12/17/2024 4:57 PM EST Narrative [facility] - 12/17/2024 5:29 PM EST D-Dimer is an exclusion assay. The FDA approved cut-off for the exclusion of DVT and PE with this method is 500 ng/ml FEU. ??If DDIM results are greater than 500 ng/ml FEU, further studies are recommended. Alisa WAGGONER LAB BLOOD ORDERABLES Final R esult Performing Organization Address [facility] Co de Phone Number [facility] [address] [place] [address] * hCG, serum, qualitative (12/17/2024 4:49 PM EST) Pathologist [facility] hCG Qual Negative Negative 12/17/2024 5:23 PM EST [facility] Blood Venous blood specimen / Unknown Venipuncture / Unknown 12/17/2024 4:49 PM EST 12/17/2024 4:57 PM EST Alisa WAGGONER LAB BLOOD ORDERABLES Final R esult [facility] [address] [place] [address] * (ABNORMAL) Comprehensive metabolic panel (12/17/2024 4:49 PM EST) Only the most recent of2 resultswithin the time period is included. Sodium 138 136 - 145 mmol/L LAB CHEMISTRY METHOD 12/17/2024 5:21 PM [facility] Potassium 3.2(L) 3.5 - 5.1 mmol/L LAB CHEMISTRY METHOD 12/17/2024 5:21 PM [facility] Chloride 99 98 - 107 mmol/L LAB CHEMISTRY METHOD 12/17/2024 5:21 PM [facility] CO2 28 21 - 32 mmol/L LAB CHEMISTRY METHOD 12/17/2024 5:21 PM [facility] Anion Gap 11 3 - 11 LAB CHEMISTRY METHOD 12/17/2024 5:21 PM [facility] Glucose 91 70 - 99 mg/dL LAB CHEMISTRY METHOD 12/17/2024 5:21 PM [facility] BUN 8 7 - 18 mg/dL LAB CHEMISTRY METHOD 12/17/2024 5:21 PM [facility] Creatinine 0.71 0.55 - 1.30 mg/dL LAB CHEMISTRY METHOD 12/17/2024 5:21 PM [facility] eGFR 122 >=60 mL/min/1. 73m2 LAB CHEMISTRY METHOD 12/17/2024 5:21 PM [facility] Comment: For non-binary individuals or unknown sex, the equation for female sex is used to calculate the estimated glomerular filtration rate (eGFR). Calculation based on the??Chronic Kidney Disease Epidemiology Collaboration (CKD-EPI) equation refit??without adjustment for race. BUN/Creatinine Ratio 11.3(L) 12.0 - 20.0 LAB CHEMISTRY METHOD 12/17/2024 5:21 PM [facility] Calcium 8.3(L) 8.5 - 10.1 mg/dL LAB CHEMISTRY METHOD 12/17/2024 5:21 PM [facility] AST (SGOT) 35 15 - 37 unit/L LAB CHEMISTRY METHOD 12/17/2024 5:21 PM [facility] ALT (SGPT) 42 13 - 61 unit/L LAB CHEMISTRY METHOD 12/17/2024 5:21 PM [facility] Alkaline Phosphatase 104 42 - 128 unit/L LAB CHEMISTRY METHOD 12/17/2024 5:21 PM [facility] Total Protein 6.6 6.4 - 8.2 g/dL LAB CHEMISTRY METHOD 12/17/2024 5:21 PM [facility] Albumin 3.3(L) 3.4 - 5.0 g/dL LAB CHEMISTRY METHOD 12/17/2024 5:21 PM [facility] Total Bilirubin 0.7 0.2 - 1.2 mg/dL LAB CHEMISTRY METHOD 12/17/2024 5:21 PM [facility] Blood Venous blood specimen / Unknown Venipuncture / Unknown 12/17/2024 4:49 PM EST 12/17/2024 4:57 PM EST us Alisa WAGGONER LAB BLOOD ORDERABLES Final R esult [facility] [address] [place] [address] * XR Chest 2 Views (12/17/2024 4:39 PM EST) Only the most recent of2 resultswithin the time period is included. Anatomical Region Laterality Modality Body Radiographic Holly ging 12/17/2024 4:40 PM EST Impressions 12/17/2024 4:41 PM EST No acute chest abnormality. -------- FINAL REPORT -------- Dictated By: Tucker Woodward Dictated Date: 12/17/2024 16:40 Assigned Physician: Tucker Woodward Reviewed and Electronically Signed By: Tucker Woodward Signed Date: 12/17/2024 16:41 Workstation ID: [id number] Transcribed By: Self Edit Transcribed Date: 12/17/2024 16:40 Narrative 12/17/2024 4:41 PM EST Comparison: None. Observations: No pulmonary opacity or edema. No pleural effusion or pneumothorax. ??Midline trachea. ??Normal heart size and pulmonary vascularity. Mild thoracic dextrocurvature. Otherwise unremarkable visualized skeleton. Procedure Note Tucker Woodward MD - 12/17/2024 Comparison: None. Observations: No pulmonary opacity or edema. No pleural effusion or pneumothorax.Midline trachea. Normal heart size and pulmonary vascularity. Mildthoracic dextrocurvature. Otherwise unremarkable visualized skeleton. IMPRESSION: No acute chest abnormality. -------- FINAL REPORT -------- Dictated By: Tucker Woodward Dictated Date: 12/17/2024 16:40 Assigned Physician: Tucker Woodward Reviewed and Electronically Signed By: Tucker Woodward Signed Date: 12/17/2024 16:41 Workstation ID: [id number] Transcribed By: Self Edit Transcribed Date: 12/17/2024 16:40 Alisa WAGGONER IMG XR PROCEDURES Final Resu lt * POCT [id number] screening, molecular (12/17/2024 4:31 PM EST) [id number] Molecular POCT Negative Negative METHOD [id number] 12/17/2024 4:40 PM EST [facility] Swab Nasopharyngeal structure / Unknown 12/17/2024 4:31 PM EST 12/17/2024 4:41 PM EST Generic Provider Poct LAB POINT OF CARE TEST DOCKED DEVICE UNSOLICITED RESULTS Final Result Performing Organization Address City/[facility]/ZIP Co de Phone Number [facility] [address] [place] [address] * (ABNORMAL) POCT Influenza type A and B (12/17/2024 4:30 PM EST) Influenza A Screen POCT Positive(AA) Negative METHOD [id number] 12/17/2024 4:41 PM EST [facility] Influenza B Screen POCT Negative Negative METHOD [id number] 12/17/2024 4:41 PM EST [facility] Swab Nasopharyngeal structure / Unknown 12/17/2024 4:30 PM EST 12/17/2024 4:43 PM EST Generic Provider Poct LAB POINT OF CARE TEST DOCKED DEVICE UNSOLICITED RESULTS Final Result Performing Organization Address [facility] Co de Phone Number [facility] [address] [place] [address] * ECG 12 lead (12/17/2024 3:39 PM EST) Only the most recent of2 resultswithin the time period is included. Ventricular Rate ECG 89 BPM GEMUSE Atrial Rate 89 BPM GEMUSE P-R Interval 130 ms GEMUSE QRS Duration 84 ms GEMUSE Q-T Interval 332 ms GEMUSE QTc 403 ms GEMUSE P Wave [place] 23 degrees GEMUSE R [place] 15 degrees GEMUSE T [place] 8 degrees GEMUSE ECG Interpretation NORMAL SINUS RHYTHM NORMAL ECG NO PREVIOUS ECGS AVAILABLE Confirmed by Beverly Mayo ([id number]) on 12/20/2024 12:18:12 PM GEMUSE 12/17/2024 3:39 PM EST 12/20/2024 12:18 PM EST us Alisa WAGGONER ECG ORDERABLES Final Result GEMUSE * Tissue exam (12/15/2024 1:15 PM EST) Final Diagnosis Abdominal Wall, umbilical hernia sac-herniorraphy: -HERNIA SAC WITH FOCAL FOREIGN BODY GRANULOMA 12/16/2024 12:23 PM EST [facility] Gross Description A. Abdominal Wall, umbilical hernia sac: Labeled umbilical abd wall . Received in formalin is a 4.0 x 2.5 x 1.5 cm crane-pink to red saccular, fibromembranous portion of tissue with a small amount of attached adipose tissue. The specimen is sectioned and manufacturers service representative sections are submitted in one cassette, two pieces. TS 12/16/2024 12:23 PM EST [facility] Disclaimer Unless otherwise specified, all tissue is 10% NB formalin fixed and paraffin embedded. 12/16/2024 12:23 PM EST [facility] Tissue Abdominal wall / Unknown 12/15/2024 1:15 PM EST 12/15/2024 2:57 PM EST us Jose Sanford MD LAB PATHOLOGY ORDERABLES Fin al Result [facility] [address] [place] [address], * TH AN ENDOTRACHEAL(NO CHARGE) (12/15/2024 1:01 PM EST) Narrative Ellie Xiao SRNA - 12/15/2024 1:01 PM EST DAYDAY Carrasco ? 12/15/2024 ??1:02 PM General Information and Staff Patient location during procedure: OR Performed by: DAYDAY Carrasco Authorized by: Vane Pino MD ?? Intubation Airway not difficult Urgency: elective Final Airway Details Successful airway: ETT Cuffed: yes Successful intubation technique: video laryngoscopy Facilitating devices/methods: intubating stylet Endotracheal tube insertion site: oral Blade: Chelsie Blade size: #3 ETT size (mm): 8.0 Cormack-Lehane Classification: grade I - full view of glottis Placement verified by: chest auscultation, capnometry and palpation of cuff Measured from: teeth ETT to teeth (cm): 20 Number of attempts at approach: 1 Number of other approaches attempted: 0Final airway type: endotracheal airway Indications and Patient Condition Indications for airway management: anesthesia Spontaneous Ventilation: absent Sedation level: Yes Preoxygenated: yes Soft Tissue Damage: No Dentition Unchanged: Yes Patient position: sniffing MILS maintained throughout Mask difficulty assessment: 1 - vent by mask us Vane Pino MD ANESTHESIA ORDERABLES Final Resu lt * (ABNORMAL) Urinalysis with reflex microscopic and culture (12/10/2024 1:10 PM EST) Specific [place] Urine 1.028 1.003 - 1.030 LAB URINALYSIS - AUTOMATED METHOD 12/10/2024 2:[address] [facility] pH, Urine 5.0 5.0 - 8.0 pH LAB URINALYSIS - AUTOMATED METHOD 12/10/2024 2:[address] [facility] Leukocytes, Urine Trace(A) Negative LAB URINALYSIS - AUTOMATED METHOD 12/10/2024 2:[address] [facility] Nitrite, Urine Negative Negative LAB URINALYSIS - AUTOMATED METHOD 12/10/2024 2:[address] [facility] Protein, Urine Negative <=Trace mg/dL LAB URINALYSIS - AUTOMATED METHOD 12/10/2024 2:[address] [facility] Glucose, Urine Negative Negative mg/dL LAB URINALYSIS - AUTOMATED METHOD 12/10/2024 2:[address] [facility] Ketones, Urine Trace(A) Negative mg/dL LAB URINALYSIS - AUTOMATED METHOD 12/10/2024 2:[address] [facility] Urobilinogen, Urine 1.0 0.2 - 1.0 mg/dL LAB URINALYSIS - AUTOMATED METHOD 12/10/2024 2:[address] [facility] Bilirubin, Urine Small(A) Negative LAB URINALYSIS - AUTOMATED METHOD 12/10/2024 2:[address] [facility] Blood, Urine Trace(A) Negative LAB URINALYSIS - AUTOMATED METHOD 12/10/2024 2:[address] [facility] RBC, Urine 3.2 0 - 4 /HPF LAB URINALYSIS - AUTOMATED METHOD 12/10/2024 2:[address] [facility] WBC, Urine 4.9(H) 0 - 4 /HPF LAB URINALYSIS - AUTOMATED METHOD 12/10/2024 2:[address] [facility] Squamous Epithelial, Urine >100(H) 0 - 60 /LPF LAB URINALYSIS - AUTOMATED METHOD 12/10/2024 2:[address] [facility] Bacteria, Urine Few(A) Negative /HPF LAB URINALYSIS - AUTOMATED METHOD 12/10/2024 2:[address] [facility] Hyaline Casts, Urine 12.0(H) 0 - 3 /LPF LAB URINALYSIS - AUTOMATED METHOD 12/10/2024 2:[address] [facility] Urine Urine specimen obtained by clean catch procedure / Unknown Non-blood Collection / Unknown 12/10/2024 1:10 PM EST 12/10/2024 1:34 PM EST us Esperanza WAGGONER LAB URINE ORDERABLES Final R esult [facility] [address] [place] [address], * Hickey urine culture tube (12/10/2024 1:10 PM EST) Extra Tube Hold for add-ons. 12/10/2024 3:[address] [facility] Comment:Auto resulted. Urine Urine specimen obtained by clean catch procedure / Unknown Non-blood Collection / Unknown 12/10/2024 1:10 PM EST 12/10/2024 1:34 PM EST us Esperanza WAGGONER LAB URINE ORDERABLES Final R esult Performing Organization Address [facility]/ZIP Co de Phone Number [facility] [address] [place] [address], [place] [phone] * Prothrombin time with INR (12/10/2024 1:10 PM EST) Pathologist [facility] Protime 13.8 10.6 - 13.9 sec LAB COAGULATION METHOD 12/10/2024 2:00 PM EST [facility] INR 1.1 LAB COAGULATION METHOD 12/10/2024 2:00 PM EST [facility] Blood Venous blood specimen / Unknown Venipuncture / Unknown 12/10/2024 1:10 PM EST 12/10/2024 1:34 PM EST us Esperanza WAGGONER LAB BLOOD ORDERABLES Final R esult Performing Organization Address City/[facility]/ZIP Co de Phone Number [facility] [address] [place] [address], [place] [phone] * Type and screen (12/10/2024 1:10 PM EST) ABO Group A 12/10/2024 3:39 PM EST [facility] Rh Type Positive 12/10/2024 3:39 PM EST [facility] Antibody Screen Negative 12/10/2024 3:39 PM EST [facility] Blood Venous blood specimen / Unknown Venipuncture / Unknown 12/10/2024 1:10 PM EST 12/10/2024 1:34 PM EST us Esperanza WAGGONER LAB BLOOD BANK TEST ORDERABL ES Final Result Performing Organization Address [facility]/ZIP Co de Phone Number [facility] [address] [place] [address], * Culture urine (12/10/2024 1:10 PM EST) Culture, Urine >100,000 CFU/mL Mixed urogenital moe, no uropathogens present. Suggest repeat specimen if clinically indicated. 12/11/2024 10:39 AM EST [facility] Urine Urine specimen obtained by clean catch procedure / Unknown Non-blood Collection / Unknown 12/10/2024 1:10 PM EST 12/10/2024 2:23 PM EST Esperanza WAGGONER LAB MICROBIOLOGY - GENERAL O RDERABLES Final Result Performing Organization Address [facility] Co de Phone Number [facility] [address] [place] [address], * Magnesium (12/10/2024 1:10 PM EST) Pathologist [facility] Magnesium 2.3 1.9 - 2.6 mg/dL LAB CHEMISTRY METHOD 12/10/2024 2:06 PM EST [facility] Blood Venous blood specimen / Unknown Venipuncture / Unknown 12/10/2024 1:10 PM EST 12/10/2024 1:34 PM EST Esperanza WAGGONER LAB BLOOD ORDERABLES Final R esult Performing Organization Address [facility]/ZIP Co de Phone Number [facility] [address] [place] [address], [place] [phone] * BMP (12/10/2024 1:10 PM EST) Sodium 139 133 - 145 mmol/L LAB CHEMISTRY METHOD 12/10/2024 2:06 PM EST [facility] Potassium 3.9 3.5 - 5.5 mmol/L LAB CHEMISTRY METHOD 12/10/2024 2:[address] [facility] Chloride 106 96 - 110 mmol/L LAB CHEMISTRY METHOD 12/10/2024 2:[address] [facility] CO2 28 21 - 32 mmol/L LAB CHEMISTRY METHOD 12/10/2024 2:[address] [facility] Anion Gap 5 3 - 11 LAB CHEMISTRY METHOD 12/10/2024 2:[address] [facility] Glucose 85 70 - 100 mg/dL LAB CHEMISTRY METHOD 12/10/2024 2:[address] [facility] BUN 9 5 - 25 mg/dL LAB CHEMISTRY METHOD 12/10/2024 2:[address] [facility] Creatinine 0.60 0.50 - 1.30 mg/dL LAB CHEMISTRY METHOD 12/10/2024 2:[address] [facility] eGFR 129 >=60 mL/min/1. 73m2 LAB CHEMISTRY METHOD 12/10/2024 2:[address] [facility] Comment: For non-binary individuals or unknown sex, the equation for female sex is used to calculate the estimated glomerular filtration rate (eGFR). Calculation based on the??Chronic Kidney Disease Epidemiology Collaboration (CKD-EPI) equation refit??without adjustment for race. BUN/Creatinine Ratio 15.0 LAB CHEMISTRY METHOD 12/10/2024 2:[address] [facility] Calcium 9.0 8.5 - 10.5 mg/dL LAB CHEMISTRY METHOD 12/10/2024 2:[address] [facility] Blood Venous blood specimen / Unknown Venipuncture / Unknown 12/10/2024 1:10 PM EST 12/10/2024 1:34 PM EST us Esperanza WAGGONER LAB BLOOD ORDERABLES Final R esult [facility] [address] [place] [address], [place] [phone] * POC , urine manually resulted (11/24/2024 9:46 AM EST) Pathologist [facility] HCG, Ur POC Negative Negative POC hCG Int QC Pass? Yes Yes Urine Urine specimen obtained by clean catch procedure / Unknown 11/24/2024 9:46 AM EST Rick Dubon DO POINT OF CARE TEST ENTER/EDIT ORDERABLES Final Result * Lipase (11/24/2024 9:44 AM EST) Pathologist [facility] Lipase 27 13 - 75 unit/L LAB CHEMISTRY METHOD 11/24/2024 10:44 AM EST [facility] Blood Venous blood specimen / Unknown Venipuncture / Unknown 11/24/2024 9:44 AM EST 11/24/2024 10:14 AM EST Rick Dubon DO LAB BLOOD ORDERABLES Final Res ult Performing Organization Address City/[facility]/ZIP Co de Phone Number [facility] [address] [place] [address], [place] [phone] * Hepatitis C antibody (11/12/2024 9:40 AM EST) [facility] Hepatitis C Antibody Negative Negative LAB CHEMISTRY METHOD 11/12/2024 7:10 PM EST [facility] Blood Venous blood specimen / Unknown 11/12/2024 9:40 AM EST 11/12/2024 5:35 PM EST Neptali Madera MD LAB BLOOD ORDERABLES Final Re sult Performing Organization Address City/[facility]/ZIP Co de Phone Number [facility] [address] [place] [address], [place] [phone] * HIV 1,2 antibody, p24 antigen with reflex to differentiation (11/12/2024 9:40 AM EST) [facility] HIV Combo AB/AG Negative Negative LAB CHEMISTRY METHOD 11/12/2024 7:11 PM EST [facility] Blood Venous blood specimen / Unknown 11/12/2024 9:40 AM EST 11/12/2024 5:35 PM EST Narrative [facility] - 11/12/2024 7:11 PM EST This assay is a 4th generation assay allowing for earlier detection of HIV infection by detecting the presence of the HIV-1 p24 antigen as well as the traditional antibodies to HIV type 1 (including group O) and type 2. ??Use of a 4th generation assay is the current CDC recommendation for HIV screening. Neptali Madera MD LAB BLOOD ORDERABLES Final Re sult Performing Organization Address [facility]/ZIP Co de Phone Number [facility] [address] [place] [address], [place] [phone] * Treponema pallidum antibody with reflex to RPR and particle agglutination (11/12/2024 9:40 AM EST) [facility] T. Pallidum Antibodies Negative Negative LAB CHEMISTRY METHOD 11/12/2024 6:42 PM EST [facility] Blood Venous blood specimen / Unknown 11/12/2024 9:40 AM EST 11/12/2024 5:35 PM EST Neptali Madera MD LAB BLOOD ORDERABLES Final Re sult Performing Organization Address City/[facility]/ZIP Co de Phone Number [facility] [address] [place] [address], [place] [phone] * SST tube (11/12/2024 9:40 AM EST) [facility] Extra Tube Hold for add-ons. 11/12/2024 7:01 PM EST [facility] Comment:Auto resulted. Blood Venous blood specimen / Unknown 11/12/2024 9:40 AM EST 11/12/2024 5:36 PM EST Neptali Madera MD LAB BLOOD ORDERABLES Final Re sult Performing Organization Address [facility]/ZIP Co de Phone Number [facility] [address] [place] [address], [place] [phone] * (ABNORMAL) Vaginitis pathogens molecular study (11/12/2024 9:40 AM EST) Trichomonas vaginalis Negative Negative 11/13/2024 1:38 PM EST [facility] Gardnerella vaginalis Positive(A) Negative 11/13/2024 1:38 PM EST [facility] Rossana Species Negative Negative 1:38 PM EST [facility] Swab 11/12/2024 9:40 AM EST 11/12/2024 5:35 PM EST Neptali Madera MD LAB MICROBIOLOGY - GENERAL OR DERABLES Final Result Performing Organization Address [facility] Phone Number [facility] [address] [place] [address], [place] [phone] * Chlamydia trachomatis and Neisseria gonorrhoeae molecular study (11/12/2024 9:40 AM EST) Neisseria gonorrhoeae PCR Negative Negative LAB MOLECULAR DIAGNOSTICS METHOD 11/13/2024 9:59 AM EST [facility] Chlamydia trachomatis PCR Negative Negative LAB MOLECULAR DIAGNOSTICS METHOD 11/13/2024 9:59 AM EST [facility] Urine 11/12/2024 9:40 AM EST 11/12/2024 5:35 PM EST us Neptali Madera MD LAB MICROBIOLOGY - GENERAL OR DERABLES Final Result Performing Organization Address City/[facility]/ZIP Co de Phone Number [facility] [address] [place] [address], * (ABNORMAL) Lipid panel (05/08/2023) LDL/HDL Ratio 4 0 - 4 Triglycerides 114 0 - 150 mg/dL Cholesterol 192 0 - 200 mg/dL HDL 54 >=40 mg/dL LDL Cholesterol 116(A) 0 - 100 mg/dL Blood Venous blood specimen / Unknown us Historical Provider LAB BLOOD ORDERABLES Alisia l Result from Last 3 Months or Most Recently Relevant to Health Maintenance Insurance MEDICAID - [place] Care Teams Staff Development Coordinator Relationship Specialty Start Date End Date Barrington Peres NP [address] [place] [address] PCP - General Family Medicine 11/24/24
--- OUTSIDE RECORDS SUMMARY | 2025-01-19 13:02 | XMS_ITS | Clinical Summary ---
Author Organization [facility] Address [address] [place] [address] Care Team Providers Care Full Stack Net Developer Name Role Phone Barrington Peres [employer] Primary Care Provider [phone]- [phone] Allergies Active Allergy Reactions Criticality Noted Date Comments [employer] 04/30/2024 Medications Medication Sig Dispensed Refills Start Date End Date Status Acetaminophen Extra Strength 500 MG TABS Take 2 tablets by mouth every 8 (eight) hours. 0 03/09/2024 Active albuterol 108 (90 Base) MCG/ACT inhaler 2 puff(s) inhaled every 6 hours for 30 days 0 Active norethindrone (MICRONOR) 0.35 MG tablet Take 1 tablet (0.35 mg total) by mouth daily. 0 03/31/2024 Active ondansetron (ZOFRAN-ODT) [address] 1 TABLET UNDER THE TONGUE TO DISSOLVE EVERY 8 HOURS NEEDED FOR NAUSEA FOR UP TO 7 DAYS 0 03/09/2024 Active pantoprazole (PROTONIX) 40 MG tablet 1 tab(s) orally once a day 0 03/09/2024 Active polyethylene glycol (MIRALAX) 17 g packet Take 17 g by mouth. 0 03/09/2024 Active simethicone (MYLICON) 80 MG chewable tablet CHEW AND SWALLOW 1 TABLET BY MOUTH EVERY 6 HOURS NEEDED FOR flatulence 0 04/20/2024 Active Social History Tobacco Use Types Packs/Day Years Used Date Smoking Tobacco: Never Assessed Sex and Gender Information Value Date Recorded Sex Assigned at Not on file Gender Identity Not on file Sexual Orientation Not on file Job Start Date Occupation Industry Not on file Not on file Not on file Last Filed Vital Signs Vital Sign Reading Time Taken Comments Blood Pressure 141/80 04/30/2024 2:21 PM EDT Pulse 71 04/30/2024 2:21 PM EDT Temperature 36.2 ??C (97.2 ??F) 04/30/2024 2:21 PM ED T Respiratory Rate - - Oxygen Saturation 98% 04/30/2024 2:21 PM EDT Inhaled Oxygen Concentration - - Weight 171.2 kg (377 lb 6.8 oz) 04/30/2024 2:21 PM EDT Height - - Body Mass Index - - Plan of Treatment Health Maintenance Due Date Last Done Comments Hepatitis B Vaccines (1 of 3 - 3-dose series) 2000 Hepatitis C Screening 2000 COVID-19 Vaccine (#1) 03/23/2001 Depression Screening 2012 Gonorrhea and Chlamydia Screening 2013 Preventative Health Evaluation 2018 DTap / Tdap / Td (1 - Tdap) 2019 Cervical Cancer Screening (P ap Smear) 2021 Influenza Vaccine (#1) 2024 Pneumococcal Vaccine Aged Out No long er eligible based on patient's age to complete this topic RSV Ped < 20 months Aged Out No longe r eligible based on patient's age to complete this topic Care Teams Full Stack Net Developer Relationship Specialty Start Date End Date Barrington Peres NP [address] [facility] [place] [address] PCP - General Nurse Practitioner 04/29/24
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
--- OUTSIDE RECORDS SUMMARY | 2025-01-19 13:03 | XMS_ITS ---
Author Organization [facility] Address [address], [place] [id number] Care Team Providers Care Director Recreation Name Role Phone Barrington Peres Primary Care Provider REASON FOR VISIT [facility] Encounters Encounter Location Date Provider Diagnosis [facility] [address], [place] [id number] 12/16/2024 Barrington Peres Plan Of Treatment Next Appt Details Provider Name:Gilda Samaniego, 03/10/2025 11:30:00 AM, [address] [facility], [place], [place], [id number], Progress Notes * Jackie GROSS SDOB: [birth year] (24 yo F)Acc No.[id number]:12/16/2024 Patient:?Jackie GROSS :2000???Age:24 Y???Sex:Female Address:[address], [place] [address] * true * Date:? Generated for Printi ng/Facarmeng/eTransmitting on:?01/19/2025 01:02 PM EDT
--- OUTSIDE RECORDS SUMMARY | 2025-01-19 13:03 | XMS_ITS | Encounter Summary ---
Author Organization [facility] Address [address] [place] [address] Care Team Providers Care Cloth Wire Weaver Name Role Phone Barrington Peres MARKETING COPYWRITER Primary Care Provider [phone]- [phone] Encounter Details Date Type Department Care Team (Late Contact Info) Description 11/12/2024 Lab Requisition [facility] - Main Lab [address] [facility] [phone] Neptali Madera MD [address] [place], [place] Acute vaginitis Social History Tobacco Use Types Packs/Day Years Used Date Smoking Tobacco: Former Smokeless Tobacco: Never Alcohol Use Standard Drinks/Week Comments Never 0 (1 standard drink = 0.6 oz pur e alcohol) Comments Unknown Sex and Gender Information Value Date Recorded Sex Assigned at Female 12/10/2024 1:03 PM EST Legal Sex X 09/16/2024 9:15 PM EST Gender Identity Other 12/10/2024 1:03 PM EST Sexual Orientation Choose not to disclose 2024 1:03 PM EST documented as of this encounter Plan of Treatment Upcoming Encounters Date Type Department Care Team (Late st Contact Info) Description 03/16/2025 2:30 PM EDT Telemedicine Bariatric Surgery [facility] [address] [facility] [address] [place] [phone] 175 [facility] [address] [place] [address] 04/26/2025 2:15 PM EDT Office Visit Bariatric Surgery [facility] 175 [facility] [address] [phone] Esperanza Hicks PA [address] [facility] [address] [place] [address] documented as of this encounter Procedures Procedure Name Priority Date/Time Associated Diagnosis Comments HEPATITIS C ANTIBODY Routine 11/12/2024 9:40 AM EST Acute vaginitis HIV 1, 2 ANTIBODY, P24 ANTIGEN WITH REFLEX TO DIFFERENTIATION Routine 11/12/2024 9:40 AM EST Acute vaginitis TREPONEMA PALLIDUM ANTIBODY WITH REFLEX TO RPR AND PARTICLE AGGLUTINATION Routine 11/12/2024 9:40 AM EST Acute vaginitis SST - GOLD Routine 11/12/2024 9:40 AM EST Acute vaginitis VAGINITIS PATHOGENS BY PCR Routine 11/12/2024 9:40 AM EST Acute vaginitis CHLAMYDIA TRACHOMATIS AND NEISSERIA GONORRHOEAE PCR Routine 11/12/2024 9:40 AM EST Acute vaginitis documented in this encounter Results * SST tube (11/12/2024 9:40 AM EST) Extra Tube Hold for add-ons. 11/12/2024 7:01 PM EST [facility] Comment:Auto resulted. Blood Venous blood specimen / Unknown 11/12/2024 9:40 AM EST 11/12/2024 5:36 PM EST us Neptali Madera MD LAB BLOOD ORDERABLES Final Re sult [facility] [address] [place] [address], * Hepatitis C antibody (11/12/2024 9:40 AM EST) [facility] Hepatitis C Antibody Negative Negative LAB CHEMISTRY METHOD 11/12/2024 7:10 PM EST [facility] Blood Venous blood specimen / Unknown 11/12/2024 9:40 AM EST 11/12/2024 5:35 PM EST Neptali Madera MD LAB BLOOD ORDERABLES Final Re sult Performing Organization Address City/[facility]/ZIP Co de Phone Number [facility] [address] [place] [address], [place] [phone] * Treponema pallidum antibody with reflex to RPR and particle agglutination (11/12/2024 9:40 AM EST) [facility] T. Pallidum Antibodies Negative Negative LAB CHEMISTRY METHOD 11/12/2024 6:42 PM EST [facility] Blood Venous blood specimen / Unknown 11/12/2024 9:40 AM EST 11/12/2024 5:35 PM EST Neptali Madera MD LAB BLOOD ORDERABLES Final Re sult Performing Organization Address City/[facility]/ZIP Co de Phone Number [facility] [address] [place] [address], [place] [phone] * HIV 1,2 antibody, p24 antigen with reflex to differentiation (11/12/2024 9:40 AM EST) [facility] HIV Combo AB/AG Negative Negative LAB CHEMISTRY METHOD 11/12/2024 7:11 PM EST [facility] Blood Venous blood specimen / Unknown 11/12/2024 9:40 AM EST 11/12/2024 5:35 PM EST Narrative [facility] - 11/12/2024 7:11 PM EST This assay is a 4th generation assay allowing for earlier detection of HIV infection by detecting the presence of the HIV-1 p24 antigen as well as the traditional antibodies to HIV type 1 (including group O) and type 2. ??Use of a 4th generation assay is the current CDC recommendation for HIV screening. us Neptali Madera MD LAB BLOOD ORDERABLES Final Re sult Performing Organization Address [facility]/ZIP Co de Phone Number [facility] [address] [place] [address], [place] [phone] * Chlamydia trachomatis and Neisseria gonorrhoeae molecular study (11/12/2024 9:40 AM EST) Neisseria gonorrhoeae PCR Negative Negative LAB MOLECULAR DIAGNOSTICS METHOD 11/13/2024 9:59 AM EST [facility] Chlamydia trachomatis PCR Negative Negative LAB MOLECULAR DIAGNOSTICS METHOD 11/13/2024 9:59 AM EST [facility] Urine 11/12/2024 9:40 AM EST 11/12/2024 5:35 PM EST Neptali Madera MD LAB MICROBIOLOGY - GENERAL OR DERABLES Final Result Performing Organization Address [facility] de Phone Number [facility] [address] [place] [address], [place] [phone] * (ABNORMAL) Vaginitis pathogens molecular study (11/12/2024 9:40 AM EST) Trichomonas vaginalis Negative Negative 11/13/2024 1:38 PM EST [facility] Gardnerella vaginalis Positive(A) Negative 11/13/2024 1:38 PM EST [facility] Rossana Species Negative Negative 1:38 PM EST [facility] Swab 11/12/2024 9:40 AM EST 11/12/2024 5:35 PM EST us Neptali Madera MD LAB MICROBIOLOGY - GENERAL OR DERABLES Final Result Performing Organization Address City/[facility]/ZIP Co de Phone Number [facility] [place] [facility] [address] [place] [address], documented in this encounter Visit Diagnoses Diagnosis Acute vaginitis Unspecified vaginitis and vulvovaginitis documented in this encounter Additional Health Concerns Infection Onset Date Last Indicated Resolved Time COVID-19 Rule-Out 12/17/2024 12/17/2024 12/17/2024 4:41 PM EST Influenza 12/17/2024 12/17/2024 01/10/2025 7:06 PM EDT documented as of this encounter Care Teams Cloth Wire Weaver Relationship Specialty Start Date End Date Barrington Peres NP [address] [place] [address] PCP - General Family Medicine 11/24/24 documented as of this encounter
--- OUTSIDE RECORDS SUMMARY | 2025-01-19 13:03 | XMS_ITS | Encounter Summary ---
Author Organization [facility] Address [address] [place] [address] Care Team Providers Care Import/Export Specialist Name Role Phone Barrington Peres NP Primary Care Provider +1- [phone] Reason for Visit * Reason Comments Follow-up 1 month PO Encounter Details Date Type Department Care Team ([facility] st Contact Info) Description 01/17/2025 1:45 PM EDT Office Visit Bariatric Surgery - [place] [address] [facility] [address] [place] [phone] Esperanza Hicks PA [address] [facility] [address] [place] [address] Umbilical hernia without obstruction and without gangrene (Primary Dx); H/O umbilical hernia repair; Bariatric surgery status; Dehydration Social History Tobacco Use Types Packs/Day Years [...] Pulse 55 01/17/2025 1:46 PM EDT Temperature - - Respiratory Rate - - Oxygen Saturation - - Inhaled Oxygen Concentration - - Weight 123 kg (270 lb 9.6 oz) 01/17/2025 1:46 PM EDT Height 160 cm (5' 3 ) 01/17/2025 1:46 PM EDT Body Mass Index 47.93 01/17/2025 1:46 PM EDT documented in this encounter Ordered Prescriptions Prescription Sig Dispense Quantity Refills Last Filled Start Date End Date scopolamine (TRANSDERM-SCOP) 1 mg over 3 days patch 3 day Apply 1 patch topically every 3rd (third) day for 9 days. 3 patch 01/17/2025 5 documented in this encounter Progress Notes * ROSALINE Wade - 01/17/2025 1:45 PM EDT Jackie Nicole is a 24 y.o. year old adult who presents for follow up regarding hernia repair. HPI: Jackie Nicole presents for surgical follow up s/p repair of umbilical hernia with Dr. Sanford at [facility] on 06/14/2024. Note, patient is also status post CARMELA w/ Juvenal Unfortunately developed shortness of breath and was seen in the ER on 12/17/2023 at which time they was diagnosed with influenza A Treated with Tamiflu At that time they were also having abdominal pain and CT of her abdomen and pelvis was acquired Indicated recent postoperative changes in the ventral abdominal wall with mildly lobulated small periumbilical fluid collection which may be seroma or abscess Today, patient states that their discomfort in her umbilical region is the same, not worsened They are eating without vomiting Complains of persistent nausea Zofran does not work well for them Drinks about 48 ounces of fluid a day but feels dehydrated Occasionally is dizzy Was supposed to have labs checked earlier this year however has not been by the lab yet Denies fever, chills, chest pain, shortness of breath Body mass index is 47.93 kg/m??. ROS: GENERAL: No malaise, significant unintentional weight loss, fever, chills or night sweats. RESPIRATORY: No cough, wheezing or shortness of breath CARDIOVASCULAR: No chest pain, leg swelling or palpitations. GI: No abdominal discomfort, nausea, vomiting, or change in bowel habits. : No dysuria, frequency or incontinence. SKIN: No lesions, rash or itching. HEMATOLOGY/LYMPHOLOGY No prolonged bleeding, easy bruisability or swollen nodes. MUSCULOSKELETAL: No abnormalities. NEURO: No abnormalities. The remainder of the review of systems is noncontributory PAST MEDICAL HISTORY: Patient Active Problem List Diagnosis Head injury, initial encounter Abrasion of face ADD (attention deficit disorder) Bipolar 1 disorder ([facility]) Hernia, umbilical OCD (obsessive compulsive disorder) Class 3 severe obesity with body mass index (BMI) of 50.0 to 59.9 in adult ([facility]) Bariatric surgery status Dehydration PAST SURGICAL HISTORY: Past Surgical History: Procedure Laterality Date APPENDECTOMY BARIATRIC SURGERY SOCIAL HISTORY: Social History Tobacco Use Smoking status: Former Smokeless tobacco: Current Substance Use Topics Alcohol use: Never FAMILY HISTORY: No family history on file. No family status information on file. MEDICATIONS: There are no discontinued medications. ACTIVE MEDICATIONS: No outpatient medications have been marked as taking for the 01/17/25 encounter (Office Visit) with ROSALINE Wade. ALLERGIES: Allergies Allergen Reactions Prunes Anaphylaxis Nsaids (Non-Steroidal Anti-Inflammatory Drug) [place] Unknown PHYSICAL EXAM: Visit Vitals BP 118/78 Pulse 55 Ht 1.6 m (63 ) Wt 123 kg (270 lb 9.6 oz) BMI 47.93 kg/m?? OB Status Having periods Smoking Status Former BSA 2.2 m?? APPEARANCE: Alert and in no acute distress EYES: Conjunctiva normal and sclera normal and anicteric. LUNG: Chest no retractions. ABDOMEN: Exam somewhat limited by body habitus. Obese. Incisions are well- healed. Soft, non-tender,without organomegaly. Fullness in the periumbilical region with deep palpation. No overlying skin changes. EXTREMITIES: Extremities warm and well perfused without clubbing, cyanosis, or edema. SKIN: Skin color and texture normal. No rashes or lesions. ASSESSMENT: 1. Umbilical hernia without obstruction and without gangrene 2. H/O umbilical hernia repair 3. Bariatric surgery status 4. Dehydration PLAN: 1. Umbilical hernia repair- No sign of infection or growing fluid collection Given patient's anxiety surrounding previous CT scan, offered repeat ultrasound however they declined Scopolamine patch for nausea Will set up a round of outpatient IV fluids for dehydration although this is likely not related to her umbilical hernia repair but her bariatric surgery Recommend patient get labs done Follow-up in 4 weeks Medication and lab orders: No orders of the defined types were placed in this encounter. Other orders: None cc: Barrington Peres NP documented in this encounter Plan of Treatment Upcoming Encounters Date Type Department Care Team (Late st Contact Info) Description 03/16/2025 2:30 PM EDT Telemedicine Bariatric Surgery [facility] [address] [phone] Komal Rivera, ALEX [address] [address] 04/26/2025 2:15 PM EDT Office Visit Bariatric Surgery [facility] [address] [phone] Esperanza Hicks PA [address] [address] documented as of this encounter Visit Diagnoses Diagnosis Umbilical hernia without obstruction and without gangrene- Primary H/O umbilical hernia repair Bariatric surgery status Dehydration documented in this encounter Care Teams Import/Export Specialist Relationship Specialty Start Date End Date Barrington Peres NP [address] [place] [address] PCP - General Family Medicine 11/24/24 documented as of this encounter
--- OUTSIDE RECORDS SUMMARY | 2025-01-19 13:03 | XMS_ITS | Encounter Summary ---
Author Organization [facility] Address [address] [place] [address] Care Team Providers Care Gang Saw Operator Name Role Phone Unavailable Primary Care Provider Unavailabl e Encounter Details Date Type Department Care Team ([facility] Contact Info) Description 10/18/2020 Hospital Encounter [facility] [address] [facility] [address] [place] [address] Maile Inman MD [address] [facility] [address] [place], [place] [id number] Encounter for general adult medical examination without abnormal findings Social History Tobacco Use Types Packs/Day Years [...] not to disclose 2024 1:03 PM EST COVID-19 Exposure Response Date Recorded In the last 10 days, have yo u been in contact with someone who was confirmed or suspected to have Coronavirus/COVID-19? No / Unsure 04/24/2022 8:33 PM EDT documented as of this encounter Plan of Treatment Upcoming Encounters Date Type Department Care Team ([facility] Contact Info) Description 03/16/2025 2:30 PM EDT Telemedicine Bariatric Surgery - [place] 175 [facility] [address] [place] [address] Komal Rivera, RD [address] [address] 04/26/2025 2:15 PM EDT Office Visit Bariatric Surgery - [place] [address] [phone] Esperanza Hicks, ROSALINE [address] [address] documented as of this encounter Visit Diagnoses Diagnosis Encounter for general adult medical examination without abnormal findings documented in this encounter Additional Health Concerns Infection Onset Date Last Indicated Resolved Time COVID-19 Rule-Out 12/17/2024 12/17/2024 12/17/2024 4:41 PM EST Influenza 12/17/2024 12/17/2024 01/10/2025 7:06 PM EDT documented as of this encounter
== END 2025-01-19 11:59 | disposition home or self-care (01) ==
PROVIDERS: PCP Nurse Practitioner; Visit Provider Internal Medicine Rheumatology
DX: R21 Rash and other nonspecific skin eruption (principal); M25.561 Pain in right knee; M25.562 Pain in left knee; G89.29 Other chronic pain; M25.551 Pain in right hip; M25.552 Pain in left hip; E66.01 Morbid (severe) obesity due to excess calories; M25.511 Pain in right shoulder; M25.512 Pain in left shoulder
CPT/HCPCS: 99204

== ENCOUNTER → 2025-01-19 10:51 | Outpatient (BNVA) | payer MEDICAID, SELFPAY | PROVIDERS: PCP Nurse Practitioner; Visit Provider Internal Medicine Rheumatology | DX: R21 Rash and other nonspecific skin eruption (principal); M25.561 Pain in right knee; M25.562 Pain in left knee; M25.551 Pain in right hip; M25.552 Pain in left hip; M25.511 Pain in right shoulder; M25.512 Pain in left shoulder; G89.29 Other chronic pain | CPT/HCPCS: 99202 ==

== ENCOUNTER 2025-05-19 10:28 | Outpatient (AMB) | payer MEDICAID, SELFPAY ==
[2025-05-19 10:34] VITALS: BP 112/62; PULSE 51; O2SAT 98; BMI 40.3
--- NOTE | 2025-05-19 10:34 | A.OFFVIS_ITS ---
Vital Signs 05/19/25 10:34 Height 5 ft 3 in Weight 227 lb 4 oz BMI 40.3 BP 112/62 Blood Pressure Location Lt brachial Position Sitting Pulse 51 Pulse Source Pulse Oximeter Pulse Oximetry (%) 98 Oxygen Delivery Method Room Air Intake Visit Reasons: 4 Months Intake Note: Patient presents for 4 month follow up. Allergies No Known Allergies Allergy (Verified 05/19/25 10:36) HPI HPI 4 Months: Details: Tylenol is ineffective. She avoids NSAIDs due to history of bariatric surgery. She has more issues in knees in the last week. Knee caps are not in place when walking. Popping/cracking when kneeling and getting up. She has done dance when she was younger. She has not been regular with an exercise routine due to stresses at school. She is a full-time student. She was unable to start physical therapy because of issues of her school possibly closing. Those issues have now been resolved until the end of the year. [facility] Medical History (Updated 05/19/25 @ 12:41 by Koffi Felipe MD) Abscess, appendix Surgical History (Updated 01/19/25 @ 11:14 by Katharine Benitez CMA) S/P biliopancreatic diversion with duodenal switch H/O hernia repair Family History (Updated 01/19/25 @ 11:13 by Katharine Benitez CMA) Mother Sarcoidosis Social History (Updated 01/19/25 @ 11:16 by Katharine Benitez CMA) Household Members: None Alcohol intake: current Alcohol intake frequency: other Tobacco use type: Cigarette Physical Exam Vital Signs: Last Vital Signs Pulse 51 05/19/25 10:34 BP 112/62 05/19/25 10:34 Pulse Ox 98 05/19/25 10:34 Oxygen Delivery Method Room Air 05/19/25 10:34 BMI result Body Mass Index 40.3 Const Other: General: Comfortable MSK: No synovitis of any joints. Normal range of motion of upper extremity. Mild Valgus deformity bilateral knees. She has knee flexion of 100 degrees bilateral knees. No trochanteric bursa tenderness was found. Normal range of motion of hip flexors. Beighton score: ?Passive dorsiflexion and hyperextension of the fifth MCP joint beyond 90? 1 1 2. Passive apposition of the thumb to the flexor aspect of t he forearm 1 1 3. Passive hyperextension of the elbow b eyond 10? 0 0 4. Passive hyperextension of the knee be yond 10? 0 0 5. Active forward flexion of the trunk w ith the knees fully extended so that the palms of the hands rest flat on the floor 1 1 TOTAL 6 Assessment & Plan Assessment & Plan (1) Bilateral knee pain: Code(s): M25.561 - Pain in right knee; M25.562 - Pain in left knee Category: Medical Qualifiers: Chronicity: chronic Qualified Code(s): M25.561 - Pain in right knee; M25.562 - Pain in left knee; G89.29 - Other chronic pain Plan: X-rays ordered Encouraged physical therapy for lower extremity strengthening. PT ordered given to patient to have done locally. (2) Benign joint hypermobility syndrome: Comment: She meets criteria for diagnosis of benign joint hypermobility syndrome. We discussed conservative management. Code(s): M35.7 - Hypermobility syndrome Category: Medical Plan: PT ordered for patient Continue to use Tylenol as needed for joint pain Avoid oral NSAIDs due to history of bariatric surgery Return to clinic in 3 months (3) Hip pain, bilateral: Code(s): M25.551 - Pain in right hip; M25.552 - Pain in left hip Category: Medical Plan: X-rays of bilateral hips ordered PT ordered for lower extremity strengthening. PT ordered given to patient to have done locally. Return to clinic in 3 months (4) Bilateral shoulder pain: Comment: With normal range of motion is concerning for mild rotator cuff tendinopathy. We discussed conservative management. Code(s): M25.511 - Pain in right shoulder; M25.512 - Pain in left shoulder Category: Medical Qualifiers: Chronicity: chronic Qualified Code(s): M25.511 - Pain in right shoulder; M25.512 - Pain in left shoulder; G89.29 - Other chronic pain Plan: X-ray bilateral shoulders ordered PT order for upper extremity strengthening. PT order given to patient to have done locally Return to clinic in 3 months Orders: Orders XR Knee Brendan 4V Today G89.29 - Other chronic pain, M25.561 - Pain in right knee, M25.562 - Pain in left knee Coding Level of Care Code Est Pt Level 4 (12321) Complex EM visit Add On G2211 Diagnoses Chronic pain of both knees M25.561; M25.562; G89.29 Chronicity: chronic Benign joint hypermobility syndrome M35.7 Hip pain, bilateral M25.551; M25.552 Chronic pain of both shoulders M25.511; M25.512; G89.29 Chronicity: chronic
--- OUTSIDE RECORDS SUMMARY | 2025-05-19 11:00 | XMS_ITS | Clinical Summary ---
Author Organization [facility] Address [address] [place] [address] Phone Care Team Providers Care Tailor Garment Fitter Name Role Phone Barrington Peres AMBULATORY SERVICES REPRESENTATIVE Primary Care Provider [phone] Allergies Active Allergy Reactions Criticality Noted Date Comments Nsaids (Non-Steroidal Anti-Inflammatory Drug) GI intolerance Medium 12/17/2024 Ione Anaphylaxis High 02/08/2022 Prunes Anaphylaxis High 07/24/2016 Medications ALBUTEROL INHL Inhale into the lungs. Active buPROPion XL (WELLBUTRIN XL) 150 mg 24 hr tabletIndication s:Morbid (severe) obesity due to excess calories (CMS/[facility] V24, CMS/[facility] V28) TAKE 1 TABLET BY MOUTH EVERY MORNING 30 tablet 3 09/10/20 24 Active naltrexone (DEPADE) 50 mg tabletIndication s:Morbid (severe) obesity due to excess calories (CMS/[facility] V24, CMS/[facility] V28) TAKE 1 TABLET BY MOUTH ONCE DAILY 30 tablet 3 09/10/20 24 Active betamethasone dipropionate (DIPROSONE) 0.05 % ointment Apply topically 2 (two) times a day. 30 g 09/16/20 24 2024 Active loratadine (CLARITIN) 10 mg tablet Take 1 tablet (10 mg total) by mouth 1 (one) time each day for 7 days. 7 tablet 09/16/20 24 Active oxyCODONE (OXY-IR) 5 mg immediate release capsule Take 1 capsule (5 mg total) by mouth every 6 (six) hours if needed for severe pain for up to 12 doses. Max Daily Amount: 20 mg 12 capsule 12/15/19 Active Additional Information Patient not taking.Reported on 02/10/2025 norethindrone (RAUL,CHRIS,HE ATHER,MICRONOR) 0.35 mg tablet Take 1 tablet (0.35 mg total) by mouth 1 (one) time each day. Active atomoxetine (STRATTERA) 40 mg capsule Take 1 capsule (40 mg total) by mouth 1 (one) time each day in the morning. 01/19/20 Active Vitamin D3 50 mcg (2,000 unit) capsule TAKE 1 CAPSULE BY MOUTH ONCE DAILY 30 capsule 2 02/18/20 Active Additional Information Patient not taking.Reported on 02/24/2025 pantoprazole (PROTONIX) 40 mg EC tablet TAKE 1 TABLET BY MOUTH ONCE DAILY 90 tablet 04/28/20 Active vitamin A 3,000 mcg (10,000 unit) tabletIndication s:Postoperative intestinal malabsorption Take 1 tablet (10,000 Units total) by mouth 1 (one) time each day. 30 tablet 05/04/20 25 2024 Active pantoprazole (PROTONIX) 40 mg EC tablet TAKE 1 TABLET BY MOUTH ONCE DAILY 90 tablet 12/15/19 25 2024 Discontinued loperamide (Imodium A-D) 2 mg tablet Take 1 tablet (2 mg total) by mouth 4 (four) times a day if needed for diarrhea for up to 10 days. 30 tablet 04/29/20 25 2024 Active Problems Problem Noted Date Diagnosed Date Abdominal pain 04/26/2025 Acute otitis externa 04/26/2025 Asthma 04/26/2025 Binge eating 04/26/2025 Bipolar affective disorder, currently depressed, moderate ([facility] V24, CMS/[facility] V28) 04/26/2025 Chronic rhinitis 04/26/2025 Borderline personality disorder (CMS/[facility] V24, CM S/[facility] V28) 04/26/2025 Depression 04/26/2025 Hypertriglyceridemia 04/26/2025 Insulin resistance syndrome 04/26/2025 Iron deficiency 04/26/2025 Low self esteem 04/26/2025 Major depressive disorder, r ecurrent severe without psychotic features (CMS/HCC V24, CMS/[facility] V28) 04/26/2025 Mild persistent asthma without complication 04/04 Osteoarthritis of knee 04/26/2025 Sheltered homelessness 04/26/2025 Steatosis of liver 04/26/2025 Suicidal ideation 04/26/2025 Undernutrition 04/26/2025 Vitamin D deficiency 04/26/2025 Von Willebrands disease ([facility] V24, [facility] V2 8) 04/26/2025 Bipolar depression ([facility] V24, [facility] V28) Bipolar disorder ([facility] V24, [facility] V28) 04/04 Obesity 04/26/2025 Agitation requiring sedation protocol 04/26/2025 Anxiety 04/26/2025 Obsessive-compulsive disorder 04/26/2025 Other specified anxiety disorders 04/26/2025 Posttraumatic stress disorder 04/26/2025 Bariatric surgery status 01/17/2025 Dehydration 01/17/2025 Class 3 severe obesity due t o excess calories with serious comorbidity and body mass index (BMI) of 40.0 to 44.9 in adult ([facility] V24, [facility] V28) 09/01/2024 ADD (attention deficit disorder) 01/06/2023 Bipolar 1 disorder ([facility] V24, [facility] V28) Hernia, umbilical 01/06/2023 OCD (obsessive compulsive disorder) 01/06/2023 Hx of tonsillectomy 01/06/2023 Head injury, initial encounter 02/08/2022 Abrasion of face 02/08/2022 Palpitations 03/30/2019 Morbid obesity ([facility] V24, [facility] V28) 2018 Major depressive disorder 06/17/2017 GERD (gastroesophageal reflux disease) 7 Attempted suicide ([facility] V24, [facility] V28) Extrinsic asthma with status asthmaticus, mild i ntermittent 09/10/2009 Encounters Date Type Department Care Team Description 05/12/2025 1:15 PM EDT - 05/12/2025 11:59 PM EDT Hospital Encounter [facility] [address] [place] [address] Jose Sanford MD Dehydration (Primary Dx); Bariatric surgery status Discharge Disposition: Home or Self Care 05/05/2025 1:16 PM EDT - 05/05/2025 11:59 PM EDT Hospital Encounter [facility] [address] [place] [phone] Jose Sanford MD Dehydration (Primary Dx); Bariatric surgery status Discharge Disposition: Home or Self Care 04/28/2025 1:30 PM EDT - 04/28/2025 11:59 PM EDT Hospital Encounter [facility] [address] [place] [phone] Jose Sanford MD Dehydration (Primary Dx); Bariatric surgery status Discharge Disposition: Home or Self Care 04/26/2025 2:15 PM EDT Office Visit Bariatric Surgery - [address] [phone] Esperanza Hicks PA Bariatric surgery status (Primary Dx); Class 3 severe obesity due to excess calories with serious comorbidity and body mass index (BMI) of 40.0 to 44.9 in adult (CMS/HCC V24, CMS/HCC V28) 04/21/2025 1:28 PM EDT - 04/21/2025 11:59 PM EDT Hospital Encounter [facility] [address] [place] [phone] Jose Sanford MD Dehydration (Primary Dx); Bariatric surgery status Discharge Disposition: Home or Self Care 04/14/2025 1:27 PM EDT - 04/14/2025 11:59 PM EDT Hospital Encounter [facility] [address] [place] [phone] Dehydration (Primary Dx); Bariatric surgery status Discharge Disposition: Home or Self Care 04/07/2025 12:13 PM EDT - 04/07/2025 11:59 PM EDT Hospital Encounter [facility] [address] [place] [phone] Jose Sanford MD Dehydration (Primary Dx); Bariatric surgery status Discharge Disposition: Home or Self Care 03/31/2025 12:52 PM EDT - 03/31/2025 11:59 PM EDT Hospital Encounter [facility] [address] [place] [phone] Jose Sanford MD Dehydration (Primary Dx); Bariatric surgery status Discharge Disposition: Home or Self Care 03/24/2025 8:09 AM EDT - 03/24/2025 11:59 PM EDT Hospital Encounter [facility] [address] [place] [phone] Dehydration (Primary Dx); Bariatric surgery status Discharge Disposition: Home or Self Care 03/22/2025 [facility] - [address] [phone] Esperanza Hicks PA Advice Only (Nausea) 03/17/2025 12:54 PM EDT - 03/17/2025 11:59 PM EDT Hospital Encounter [facility] [address] [place] [phone] Jose Sanford MD Dehydration (Primary Dx); Bariatric surgery status Discharge Disposition: Home or Self Care 03/10/2025 12:53 PM EDT - 03/10/2025 11:59 PM EDT Hospital Encounter [address] [phone] Jose Sanford MD Bariatric surgery status (Primary Dx); Dehydration Discharge Disposition: Home or Self Care 03/03/2025 1:00 PM EDT - 03/03/2025 11:59 PM EDT Hospital Encounter [facility] [address] [place] [phone] Jose Sanford MD Bariatric surgery status (Primary Dx); Dehydration Discharge Disposition: Home or Self Care 02/24/2025 12:55 PM EDT - 02/24/2025 11:59 PM EDT Hospital Encounter [facility] [address] [phone] Jose Sanford MD Bariatric surgery status (Primary Dx); Dehydration Discharge Disposition: Home or Self Care 02/17/2025 11:00 AM EDT - 02/17/2025 11:59 PM EDT Hospital Encounter [facility] [address] [place] [phone] Jose Sanford MD Dehydration (Primary Dx); Bariatric surgery status Discharge Disposition: Home or Self Care from Last 3 Months Surgical History Surgery Date Site/Laterality Comments APPENDECTOMY BARIATRIC SURGERY Medical History Medical History Date Comments Asthma Bipolar disorder ([facility] V24, [facility] V28) Borderline personality disor binu ([facility] V24, [facility] V28) Anxiety Depression PTSD (post-traumatic stress disorder) Obesity [...] Sign Reading Time Taken Comments Blood Pressure 121/75 05/12/2025 1:23 PM EDT Pulse 56 05/12/2025 1:23 PM EDT Temperature 36.2 C (97.2 F) 05/12/2025 1:23 PM EDT Respiratory Rate 16 05/12/2025 1:23 PM EDT Oxygen Saturation 100% 05/12/2025 1:23 PM EDT Inhaled Oxygen Concentration - - Weight 108 kg (239 lb) 04/26/2025 2:18 PM EDT Height 160 cm (5' 3 ) 04/26/2025 2:18 PM EDT Body Mass Index 42.34 04/26/2025 2:18 PM EDT Plan of Treatment Upcoming Encounters Date Type Department Care Team (Late Contact Info) Description 05/19/2025 1:30 PM EDT Appointment [facility] [address] [place] [phone] Jose Sanford MD [address] [phone] 08/23/2025 10:00 AM EDT Office Visit Bariatric Surgery - [place] [address] [phone] Esperanza Hicks PA [address] [phone] Health Maintenance Due Date Last Done Comments Pneumococcal Vaccine: Pediatrics (0 to 5 Years) and At-Risk Patients (6 to 49 Years) (1 of 1 - PPSV23) 2006 09/28/2001, 07/03/2001, 03/17/2001 Meningococcal B Vaccine (2 of 2 - Bexsero SCDM 2-dose series) 06/24/2019 12/25/2018 Depression Screening 12/12/2019 Social Influencers of Health Screening 12/12/2019 Cervical Cancer Screening: Pap Smear 2021 COVID-19 Vaccine ( season) 2024 12/30/2022, 08/05/2022, 04/24/2021, Additional history exists Influenza Vaccine (#1) 2025 , 07/30/2016, 08/28/2015, Additional history exists Gonorrhea/Chlamydia Screening [...] 03/01/2017, Hepatitis A Vaccines Completed 12/25/2018, 06/11/20 16 Hepatitis B Vaccines Completed 06/01/2024, 12/29/2023, 11/26/2023, Additional history exists HIV Screening Completed 11/12/2024 Hepatitis C Screening Completed 11/12/2024 RSV Immunization Patients Under 20 months Aged Out No longer eligible based on patient's age to complete this topic Medical Devices Implanted Type Area Watch Leader Device Identifier Shelf Expiration Date Model / Serial / Lot Mesh Arnett 37cm Optiflex Absrb Filt System - Sna - [id number] Implanted:Qty: 2 on 12/15/2024 by Jose Sanford MD at [facility] Internal and External Fixation N/A: Umbilical CR BARD - DAVOL DIV 04/30/2026 [id number] / NA / [id number] Mesh Surg [address] White Strl Lf - Sna - [id number] Implanted:Qty: 1 on 12/15/2024 by Jose Sanford MD at [facility] Surgical Mesh Sling Implants N/A: Umbilical CR BARD - DAVOL DIV 04/30/2026 [id number] / NA / [id number] Procedures Procedure Name Priority Date/Time Associated Diagnosis Comments SELENIUM SERUM Routine 04/26/2025 2:47 PM EDT Bariatric surgery status VITAMIN A Routine 04/26/2025 2:47 PM EDT Bariatric surgery status VITAMIN B1 Routine 04/26/2025 2:47 PM EDT Bariatric surgery status VITAMIN B12 Routine 04/26/2025 2:47 PM EDT Bariatric surgery status VITAMIN B6 Routine 04/26/2025 2:47 PM EDT Bariatric surgery status VITAMIN D 25 HYDROXY Routine 04/26/2025 2:47 PM EDT Bariatric surgery status ZINC Routine 04/26/2025 2:47 PM EDT Bariatric surgery status IRON AND TIBC Routine 04/26/2025 2:47 PM EDT Bariatric surgery status FOLATE Routine 04/26/2025 2:47 PM EDT Bariatric surgery status COPPER, SERUM Routine 04/26/2025 2:47 PM EDT Bariatric surgery status COMPREHENSIVE METABOLIC PANEL Routine 04/26/2025 2:47 PM EDT Bariatric surgery status HCG QUALITATIVE, URINE Routine 2:47 PM EDT Umbilical hernia without obstruction and without gangrene FERRITIN Routine 04/26/2025 2:47 PM EDT Postoperative intestinal malabsorption HEPATITIS C ANTIBODY Routine 11/12/2024 9:40 AM EST Acute vaginitis HIV 1, 2 ANTIBODY, P24 ANTIGEN WITH REFLEX TO DIFFERENTIATION Routine 11/12/2024 9:40 AM EST Acute vaginitis CHLAMYDIA TRACHOMATIS AND NEISSERIA GONORRHOEAE PCR Routine 11/12/2024 9:40 AM EST Acute vaginitis LIPID PANEL Routine 05/08/2023 from Last 3 Months or Most Recently Relevant to Health Maintenance Results * (ABNORMAL) Iron and TIBC (04/26/2025 2:47 PM EDT) Iron 46(L) 50 - 160 mcg/dL LAB CHEMISTRY METHOD 04/26/2025 6:57 PM EDT [facility] TIBC 247(L) 250 - 450 mcg/dL LAB CHEMISTRY METHOD 04/26/2025 6:57 PM EDT [facility] Iron Saturation 19(L) 20 - 50 % LAB CHEMISTRY METHOD 04/26/2025 6:57 PM EDT [facility] Blood Venous blood specimen / Unknown Venipuncture / Unknown 04/26/2025 2:47 PM EDT 04/26/2025 2:47 PM EDT Esperanza WAGGONER LAB BLOOD ORDERABLES Final R esult Performing Organization Address City/[facility]/ZIP Co de Phone Number [facility] [address] [place] [address], [place] [phone] * Copper, serum (04/26/2025 2:47 PM EDT) Copper 1000 ug/L 05/02/2025 9:10 AM EDT [facility] Comment: Elevated results may be due to sample collected in a non-certified trace element-free tube. This test was developed and the performance characteristics determined by [facility]. It has not been cleared or approved by the FDA. The laboratory is regulated under CLIA as qualified to perform high-complexity testing. This test is used for patient testing purposes. It should not be regarded as investigational or for research. Test performed at [facility], [address] , [place] [address] Annalee Rodrigez MD, PhD - Roller Engraver Blood Venous blood specimen / Unknown Venipuncture / Unknown 04/26/2025 2:47 PM EDT 04/26/2025 2:47 PM EDT Esperanza WAGGONER LAB BLOOD ORDERABLES Final R esult [facility] [address] [place] [address] * Zinc (04/26/2025 2:47 PM EDT) Zinc 71 60 - 130 ug/dL 04/29/2025 10:48 AM EDT [facility] Comment: Elevated results may be due to sample collected in a non-certified trace element-free tube. This test was developed and the performance characteristics determined by [facility]. It has not been cleared or approved by the FDA. The laboratory is regulated under CLIA as qualified to perform high-complexity testing. This test is used for patient testing purposes. It should not be regarded as investigational or for research. Test performed at [facility], [address] [place] [address] Annalee Rodrigez MD, PhD - Roller Engraver Blood Venous blood specimen / Unknown Venipuncture / Unknown 04/26/2025 2:47 PM EDT 04/26/2025 2:47 PM EDT Esperanza WAGGONER LAB BLOOD ORDERABLES Final R esult Performing Organization Address [facility] Co de Phone Number [facility] [address] [place] [address] * (ABNORMAL) Vitamin A (04/26/2025 2:47 PM EDT) [facility] Signature Vitamin A <13(L) 38 - 106 ug/dL 05/03/2025 11:21 AM EDT [facility] Comment: This test was developed and the performance characteristics determined by [facility]. It has not been cleared or approved by the FDA. The laboratory is regulated under CLIA as qualified to perform high-complexity testing. This test is used for patient testing purposes. It should not be regarded as investigational or for research. Test performed at [facility], [address] , [place] [address] Annalee Rodrigez MD, PhD - Roller Engraver Blood Venous blood specimen / Unknown Venipuncture / Unknown 04/26/2025 2:47 PM EDT 04/26/2025 2:47 PM EDT Esperanza WAGGONER LAB BLOOD ORDERABLES Final R esult Performing Organization Address [facility]/ZIP Co de Phone Number [facility] [address] [place] [address] * Selenium serum (04/26/2025 2:47 PM EDT) [facility] Selenium 129 63 - 160 mcg/L 04/30/2025 8:48 PM EDT [facility] Comment: This test was developed and its analytical performance characteristics have been determined by [employer] [place], [place]. It has not been cleared or approved by the U.S. Food and Drug Administration. This assay has been validated pursuant to the CLIA regulations and is used for clinical purposes. Test Performed by [facility], [employer] [facility], [address] [place] [address] Prasanth Reyes M.D., Ph.D., Director of Laboratories , CLIA [id number] Blood Venous blood specimen / Unknown Venipuncture / Unknown 04/26/2025 2:47 PM EDT 04/26/2025 2:47 PM EDT Esperanza WAGGONER LAB BLOOD ORDERABLES Final R esult [facility] [address] [place] [address] * , urine (04/26/2025 2:47 PM EDT) [facility] Preg Test, Ur Negative Negative 04/26/2025 7:28 PM EDT [facility] Urine Urine specimen obtained by clean catch procedure / Unknown Non-blood Collection / Unknown 04/26/2025 2:47 PM EDT 04/26/2025 2:47 PM EDT Esperanza WAGGONER LAB URINE ORDERABLES Final R esult [facility] [address] [place] [address], [place] [phone] * (ABNORMAL) Vitamin D 25 hydroxy (04/26/2025 2:47 PM EDT) Vit D, 25-Hydroxy 29.0(L) 30.0 - 80.0 ng/mL LAB CHEMISTRY METHOD 04/26/2025 7:27 PM EDT [facility] Blood Venous blood specimen / Unknown Venipuncture / Unknown 04/26/2025 2:47 PM EDT 04/26/2025 2:47 PM EDT Esperanza WAGGONER LAB BLOOD ORDERABLES Final R esult [facility] [address] [place] [address], [place] [phone] * Vitamin B1 (04/26/2025 2:47 PM EDT) Vitamin B1 Whole Blood 57 38 - 122 ug/L 05/02/2025 7:24 AM EDT [facility] Comment: This test was developed and the performance characteristics determined by [facility]. It has not been cleared or approved by the FDA. The laboratory is regulated under CLIA as qualified to perform high-complexity testing. This test is used for patient testing purposes. It should not be regarded as investigational or for research. Test performed at [facility], [address] , [place] [address] Annalee Rodrigez MD, PhD - Roller Engraver Blood Venous blood specimen / Unknown Venipuncture / Unknown 04/26/2025 2:47 PM EDT 04/26/2025 2:47 PM EDT Esperanza WAGGONER LAB BLOOD ORDERABLES Final R esult [facility] [address] [place] [address] * Vitamin B6 (04/26/2025 2:47 PM EDT) Vitamin B6 (Pyridoxine) Level 11 5 - 50 ug/L 05/02/2025 12:18 PM EDT [facility] Comment: This test was developed and the performance characteristics determined by [facility]. It has not been cleared or approved by the FDA. The laboratory is regulated under CLIA as qualified to perform high-complexity testing. This test is used for patient testing purposes. It should not be regarded as investigational or for research. Test performed at [facility], [address] , [place] [address] Annalee Rodrigez MD, PhD - Roller Engraver Blood Venous blood specimen / Unknown Venipuncture / Unknown 04/26/2025 2:47 PM EDT 04/26/2025 2:47 PM EDT Esperanza WAGGONER LAB BLOOD ORDERABLES Final R esult Performing Organization Address City/[facility]/ZIP Co de Phone Number [facility] [address] [place] [address] * Folate (04/26/2025 2:47 PM EDT) Folate 4.5 2.8 - 17.0 ng/ml LAB CHEMISTRY METHOD 04/26/2025 7:08 PM EDT [facility] Blood Venous blood specimen / Unknown Venipuncture / Unknown 04/26/2025 2:47 PM EDT 04/26/2025 2:47 PM EDT Esperanza WAGGONER LAB BLOOD ORDERABLES Final R esult Performing Organization Address City/[facility]/ZIP Co de Phone Number [facility] [address] [place] [address], [place] [phone] * Ferritin (04/26/2025 2:47 PM EDT) Ferritin 30 26 - 388 ng/mL LAB CHEMISTRY METHOD 04/26/2025 8:25 PM EDT [facility] Blood Venous blood specimen / Unknown Venipuncture / Unknown 04/26/2025 2:47 PM EDT 04/26/2025 2:47 PM EDT Jose Sanford MD LAB BLOOD ORDERABLES Final R esult [facility] [address] [place] [address], [place] [phone] * Vitamin B12 (04/26/2025 2:47 PM EDT) [facility] Vitamin B-12 278 250 - 900 pcg/mL LAB CHEMISTRY METHOD 04/26/2025 8:20 PM EDT [facility] Blood Venous blood specimen / Unknown Venipuncture / Unknown 04/26/2025 2:47 PM EDT 04/26/2025 2:47 PM EDT Esperanza WAGGONER LAB BLOOD ORDERABLES Final R esult Performing Organization Address City/[facility]/ZIP Co de Phone Number [facility] [address] [place] [address], [place] [phone] * Comprehensive metabolic panel (04/26/2025 2:47 PM EDT) [facility] Sodium 139 133 - 145 mmol/L LAB CHEMISTRY METHOD 04/26/2025 6:57 PM EDT [facility] Potassium 4.3 3.5 - 5.5 mmol/L LAB CHEMISTRY METHOD 04/26/2025 6:57 PM EDT [facility] Chloride 105 96 - 110 mmol/L LAB CHEMISTRY METHOD 04/26/2025 6:57 PM EDT [facility] CO2 28 21 - 32 mmol/L LAB CHEMISTRY METHOD 04/26/2025 6:57 PM EDT [facility] Anion Gap 6 3 - 11 LAB CHEMISTRY METHOD 04/26/2025 6:57 PM EDT [facility] Glucose 83 70 - 100 mg/dL LAB CHEMISTRY METHOD 04/26/2025 6:57 PM EDT [facility] BUN 9 5 - 25 mg/dL LAB CHEMISTRY METHOD 04/26/2025 6:57 PM [facility] Creatinine 0.64 0.50 - 1.30 mg/dL LAB CHEMISTRY METHOD 04/26/2025 6:57 PM [facility] eGFR 127 >=60 mL/min/1. 73m2 LAB CHEMISTRY METHOD 04/26/2025 6:57 PM [facility] Comment: For non-binary individuals or unknown sex, the equation for female sex is used to calculate the estimated glomerular filtration rate (eGFR). Calculation based on the Chronic Kidney Disease Epidemiology Collaboration (CKD- EPI) equation refit without adjustment for race. BUN/Creatinine Ratio 14.1 LAB CHEMISTRY METHOD 04/26/2025 6:57 PM [facility] Calcium 8.6 8.5 - 10.5 mg/dL LAB CHEMISTRY METHOD 04/26/2025 6:57 PM [facility] AST (SGOT) 18 10 - 42 unit/L LAB CHEMISTRY METHOD 04/26/2025 6:57 PM [facility] ALT (SGPT) 43 10 - 60 unit/L LAB CHEMISTRY METHOD 04/26/2025 6:57 PM [facility] Alkaline Phosphatase 114 42 - 121 unit/L LAB CHEMISTRY METHOD 04/26/2025 6:57 PM [facility] Total Protein 6.9 6.0 - 8.0 g/dL LAB CHEMISTRY METHOD 04/26/2025 6:57 PM [facility] Albumin 3.6 3.2 - 5.0 g/dL LAB CHEMISTRY METHOD 04/26/2025 6:57 PM [facility] Total Bilirubin 0.5 0.0 - 1.4 mg/dL LAB CHEMISTRY METHOD 04/26/2025 6:57 PM [facility] [facility] Blood Venous blood specimen / Unknown Venipuncture / Unknown 04/26/2025 2:47 PM EDT 04/26/2025 2:47 PM EDT Esperanza WAGGONER LAB BLOOD ORDERABLES Final R esult Performing Organization Address [facility] Co de Phone Number [facility] [address] [place] [address], [place] [phone] * Hepatitis C antibody (11/12/2024 9:40 AM EST) Hepatitis C Antibody Negative Negative LAB CHEMISTRY METHOD 11/12/2024 7:10 PM EST [facility] Blood Venous blood specimen / Unknown 11/12/2024 9:40 AM EST 11/12/2024 5:35 PM EST Neptali Madera MD LAB BLOOD ORDERABLES Final Re sult Performing Organization Address [facility] Phone Number [facility] [address] [place] [address], [place] [phone] * HIV 1,2 antibody, p24 antigen with reflex to differentiation (11/12/2024 9:40 AM EST) [facility] HIV Combo AB/AG Negative Negative LAB CHEMISTRY [...] 1 (including group O) and type 2. Use of a 4th generation assay is the current CDC recommendation for HIV screening. us Neptali Madera MD LAB BLOOD ORDERABLES Final Re sult Performing Organization Address [facility] Co de Phone Number [facility] [address] [place] [address], [place] [phone] * Chlamydia trachomatis and Neisseria gonorrhoeae molecular [...] MICROBIOLOGY - GENERAL OR DERABLES Final Result [facility] [address] [place] [address], [place] [phone] * (ABNORMAL) Lipid panel (05/08/2023) Pathologist [facility] LDL/HDL Ratio 4 0 - 4 Triglycerides 114 0 - 150 mg/dL Cholesterol 192 0 - 200 mg/dL HDL 54 >=40 mg/dL LDL Cholesterol 116(A) 0 - 100 mg/dL Blood Venous blood specimen / Unknown Kd Provider LAB BLOOD ORDERABLES Alisia l Result from Last 3 Months or Most Recently Relevant to Health Maintenance Insurance MEDICAID - [place] Care Teams Tailor Garment Fitter Relationship Specialty Start Date End Date Barrington Peres NP [address] [place] [address] PCP - General Family Medicine 11/24/24
--- OUTSIDE RECORDS SUMMARY | 2025-05-19 11:00 | XMS_ITS | Clinical Summary ---
Author Organization [facility] Address [address] [place] [address] Care Team Providers Care Field Ring Assembler Name Role Phone Barrington Peres PILLOWCASE TURNER Primary Care Provider [phone] Allergies Active Allergy Reactions Criticality Noted Date Comments [place] 04/30/2024 Medications Medication Sig Dispensed Refills Start [...] 71 04/30/2024 2:21 PM EDT Temperature 36.2 C (97.2 F) 04/30/2024 2:21 PM EDT Respiratory Rate - - Oxygen Saturation 98% [...] (P ap Smear) 2021 Influenza Vaccine (#1) 2025 Pneumococcal Vaccine Aged Out No long er eligible based on patient's age to complete this topic RSV Ped < 20 months Aged Out No longe r eligible based on patient's age to complete this topic Care Teams Field Ring Assembler Relationship Specialty Start Date End Date Barrington Peres NP [address] [place] [address] [place] [address] PCP - General Nurse Practitioner 04/29/24
== END 2025-05-19 11:45 | disposition home or self-care (01) ==
LOC: HO.RHES 10:28
PROVIDERS: PCP Nurse Practitioner; Visit Provider Internal Medicine Rheumatology
DX: M25.561 Pain in right knee (principal); M25.562 Pain in left knee; G89.29 Other chronic pain; M35.7 Hypermobility syndrome; M25.551 Pain in right hip; M25.552 Pain in left hip; M25.511 Pain in right shoulder; M25.512 Pain in left shoulder
CPT/HCPCS: 99214

== ENCOUNTER → 2025-05-19 10:28 | Outpatient (BNVA) | payer MEDICAID, SELFPAY | PROVIDERS: PCP Nurse Practitioner; Visit Provider Internal Medicine Rheumatology | DX: M25.561 Pain in right knee (principal); M25.562 Pain in left knee; M35.7 Hypermobility syndrome; M25.551 Pain in right hip; M25.552 Pain in left hip; M25.511 Pain in right shoulder; M25.512 Pain in left shoulder; G89.29 Other chronic pain | CPT/HCPCS: 99212 ==

== ENCOUNTER 2025-10-11 10:39 | Outpatient (AMB) | payer MEDICAID, SELFPAY ==
--- NOTE | 2025-10-11 10:53 | A.OFFVIS_ITS ---
Vital Signs 10/11/25 10:55 Height 5 ft 3 in Weight 184 lb 15.485 oz BMI 32.8 BP 130/90 H Blood Pressure Location Rt brachial Position Sitting Pulse 58 Pulse Source Pulse Oximeter Pulse Oximetry (%) 100 Oxygen Delivery Method Room Air Intake Visit Reasons: follow up Intake Note: Patient presents today for bilateral knee pain. Accompanied by: Self / Same As Patient Allergies No Known Allergies Allergy (Verified 10/11/25 10:56) HPI HPI follow up: Details: She has PT scheduled for . She continues to have pain in multiple joints. She has not self medicating. No new joint swelling. She had x-rays done at [facility] but I do not have reports. [facility] Medical History Abscess, appendix Surgical History S/P biliopancreatic diversion with duodenal switch H/O hernia repair Family History Mother Sarcoidosis Social History Household Members: None Alcohol intake: current Alcohol intake frequency: other Tobacco use type: Cigarette Physical Exam Exam Exam: General: Comfortable Skin: No lesions seen MSK: No tenderness on palpation. No synovitis. Normal range of motion of upper extremities and lower extremities. Vital Signs: Last Vital Signs Pulse 58 10/11/25 10:55 BP 130/90 H 10/11/25 10:55 Pulse Ox 100 10/11/25 10:55 Oxygen Delivery Method Room Air 10/11/25 10:55 BMI result Body Mass Index 32.8 Assessment & Plan Assessment & Plan (1) Benign joint hypermobility syndrome: Comment: She will be starting physical therapy next . Rheumatology history: Failed Tylenol. Code(s): M35.7 - Hypermobility syndrome Category: Medical Plan: Rehabilitation for joint strengthening. If she is unable to tolerate physical therapy, can consider aquatic therapy. Avoid oral NSAIDs due to history of bariatric surgery Requesting x-ray results of shoulders, knees and hips from [facility] Return to clinic in 3 months (2) Bilateral knee pain: Code(s): M25.561 - Pain in right knee; M25.562 - Pain in left knee Category: Medical Qualifiers: Chronicity: chronic Qualified Code(s): M25.561 - Pain in right knee; M25.562 - Pain in left knee; G89.29 - Other chronic pain Plan: See above (3) Hip pain, bilateral: Code(s): M25.551 - Pain in right hip; M25.552 - Pain in left hip Category: Medical Plan: See above (4) Bilateral shoulder pain: Comment: With normal range of motion is concerning for mild rotator cuff tendinopathy. Code(s): M25.511 - Pain in right shoulder; M25.512 - Pain in left shoulder Category: Medical Qualifiers: Chronicity: chronic Qualified Code(s): M25.511 - Pain in right shoulder; M25.512 - Pain in left shoulder; G89.29 - Other chronic pain Plan: Start PT Requesting x-ray results from [facility] Return to clinic in 3 months Coding Level of Care Code Est Pt Level 3 (60829) Complex visit Add On G2211 Diagnoses Benign joint hypermobility syndrome M35.7 Chronic pain of both knees M25.561; M25.562; G89.29 Chronicity: chronic Hip pain, bilateral M25.551; M25.552 Chronic pain of both shoulders M25.511; M25.512; G89.29 Chronicity: chronic
[2025-10-11 10:55] VITALS: BP 130/90; PULSE 58; O2SAT 100; BMI 32.8
== END 2025-10-11 11:50 | disposition home or self-care (01) ==
LOC: HO.RHES 10:40
PROVIDERS: PCP Nurse Practitioner; Visit Provider Internal Medicine Rheumatology
DX: M35.7 Hypermobility syndrome (principal); M25.561 Pain in right knee; M25.562 Pain in left knee; G89.29 Other chronic pain; M25.551 Pain in right hip; M25.552 Pain in left hip; M25.511 Pain in right shoulder; M25.512 Pain in left shoulder
CPT/HCPCS: 99213

== ENCOUNTER → 2025-10-11 10:39 | Outpatient (BNVA) | payer MEDICAID, SELFPAY | PROVIDERS: PCP Nurse Practitioner; Visit Provider Internal Medicine Rheumatology | DX: M35.7 Hypermobility syndrome (principal); M25.561 Pain in right knee; M25.562 Pain in left knee; G89.29 Other chronic pain; M25.551 Pain in right hip; M25.552 Pain in left hip; M25.511 Pain in right shoulder; M25.512 Pain in left shoulder | CPT/HCPCS: 99212 ==